=== PATIENT | female | born 1935 | race Caucasian/White ===

== ENCOUNTER 2021-12-22 15:12 | Emergency (ER) | payer MEDICARE, OTHER, SELFPAY ==
[2021-12-22 15:54] VITALS: BP 141/78; PULSE 113; RESP 20; TEMP 37.6; O2SAT 93; BMI 22.8
--- NOTE | 2021-12-22 18:05 | CRLHL7_ITS ---
For Patients: As a result of the Cures Act, medical imaging exams and procedure reports are released immediately into your electronic medical record. You may view this report before your referring provider. If you have questions, please contact your health care provider. Indication: Fall, pain. Technique: Two views of the right hip, single AP view of the pelvis. Comparison: Pelvis radiograph dated 09/25/2021. Findings/Impression: No acute displaced fracture or dislocation identified. Bones are osteopenic. Stable healed fracture deformities of the right superior and inferior pubic ramus. Senescent changes of the pubic symphysis, stable. Dictated by Kaylin Tang MD @ 12/22/2021 7:09:35 PM (Electronically Signed)
[2021-12-22 18:38] VITALS: BP 133/75; PULSE 94; RESP 18; O2SAT 92
[2021-12-22 19:00] LABS: Basophils Percent Auto 0.2 % (0.0-3.0); Eosinophils Percent Auto 0.1 % (0.0-7.0); Hematocrit 39.5 % (33.0-51.0); Hemoglobin* 13.1 gm/dL (12.0-16.0); Immature Granulocytes Abs Auto 0.03 K/uL (0.00-0.30); Lymphocytes Percent Auto 10.8 % (20-44); Mean Corpuscular HGB Conc 33 gm/dL (32-36); Mean Corpuscular Hemoglobin 30 pg (26-34); Mean Corpuscular Volume 92 fL (80-100); Monocytes Percent Auto 7.8 % (0.0-11.0); Neutrophils Percent Auto 80.9 % (42.0-72.0); Platelet Count* 276 K/uL (140-440); RDW Coefficient of Variation % 15.3 % (11.5-15.5); Red Blood Count 4.31 m/uL (4.00-5.20); White Blood Count* 13.01 K/uL (4.50-11.00)
[2021-12-22 19:18] LABS: Slide Review Reflex No
[2021-12-22 19:21] LABS: Albumin* 4.4 g/dL (3.3-5.0); Chloride* 102 mmol/L (96-114); Sodium* 137 mmol/L (135-149)
[2021-12-22 19:22] LABS: Potassium* 3.6 mmol/L (3.6-5.1)
[2021-12-22 19:24] LABS: Creatinine* 0.7 mg/dL (0.5-1.5); Est. Creatinine Clearance* 32.69; Estimated Glomerular Filt Rate 85 ml/min
[2021-12-22 19:25] LABS: Alanine Aminotransferase* 14 U/L (4-35); Alkaline Phosphatase* 55 U/L (40-150); Aspartate Amino Transferase* 24 U/L (12-35); Bilirubin Direct* 0.2 mg/dL (0.0-0.5); Blood Urea Nitrogen* 18 mg/dL (7-30); Calcium* 9.2 mg/dL (8.4-10.6); Carbon Dioxide* 25 mmol/L (20-32); Glucose* 125 mg/dL (60-115)
[2021-12-22 19:27] LABS: C Reactive Protein* 6.1 mg/dL (0.5-1.0)
[2021-12-22 19:34] LABS: Appearance Urine Clear (Clear); Bilirubin Urine Negative (Negative); Blood Urine 1+ (Negative); Color Urine Yellow (Yellow); Glucose Urine Negative (Negative); Ketones Urine 3+ (Negative); Leukocyte Esterase Urine 1+ (Negative); Nitrite Urine Negative (Negative); Protein Urine 1+ (Negative); Specific Gravity Urine 1.015 (1.000-1.030); Urobilinogen Urine 0.2 (0.2-1.0)
[2021-12-22 19:40] LABS: Troponin I* < 0.01 ng/mL (0.01-0.04)
--- NOTE | 2021-12-22 19:54 | ED_ITS ---
HPI - General Adult General Chief complaint: Fall/Minor Trauma Stated complaint: Fall, hip injury, COV+ Time Seen by Provider: 12/22/21 17:43 History of Present Illness HPI narrative: Patient is an 86-year-old woman here with her daughter for evaluation of some hip pain that is been ongoing for a number of months as well as some weakness over the past couple of days. They are also wanting a COVID test as a home test was weakly positive. She has had a little nasal congestion yesterday and today and reported onset of a headache while in triage. She has not had any fevers or cough, no GI complaints. She has not had any urinary symptoms. She had been going up and down stairs numerous times yesterday because they were planning to go to the [place] today and so they were packing up. This seemed to exacerbate the hip pain that she has had since falls in July and August. She was seen at that time and had a pelvic x-ray in September which was negative. She has old superior and inferior pubic rami fractures but did not have anything acute. She does have known compression fractures at multiple levels, the most recent was at L2. She had falls yesterday evening and this morning, her daughter says her knees just seemed to give out and she essentially sat down on the stairs. There is no reported injuries related to those falls. Her daughter says she just seemed a little weaker yesterday and today. Her daughter wonders if her hip is the culprit. No reported head or neck injury. She has tramadol that she takes occasionally for the hip pain although she tries to minimize that because it makes her constipated. Also she worries about getting dependent on it. She describes the hip pain as achy, it is in the lateral outside hip. She does not have any groin pain. Related Data Home Medications Medication Instructions Recorded Confirmed atorvastatin 10 mg tablet mg 12/22/21 budesonide 3 mg mg PO 12/22/21 capsule,delayed,extended release levothyroxine 75 mcg tablet mcg 12/22/21 Previous Rx's Medication Instructions Recorded alendronate 70 mg tablet 70 mg PO QWEEK #4 tabs 12/08/21 Allergies Allergy/AdvReac Type Severity Reaction Status Date / Time morphine Allergy Intermediate hives Verified 12/22/21 16:04 Review of Systems Status of ROS: Reports: 10 or more systems reviewed and unremarkable except as noted in History and below [facility] Social History Smoking Status: Former smoker Do you use any of these nicotine containing products: None Second hand tobacco smoke exposure: No How often do you have a drink containing alcohol: never How many standard drinks containing alcohol do you have on a typical day: 1 or 2 How often do you have six or more drinks on one occasion: Never AUDIT-C Alcohol total score: 0 Non-prescribed substance use: denies use service: No Exam Narrative: Exam Narrative: Vital signs as noted below In general, an alert, well-appearing elderly woman. Head: Normocephalic, atraumatic. Eyes: Pupils are equal reactive. Extraocular movements are full. Conjunctivae are normal. ENT: Mucous membranes are slightly dry. Neck: Supple without lymphadenopathy. Heart: Regular rate and rhythm. No murmur or rub. Lungs: Clear bilaterally. No increased work of breathing, crackles or wheezes. Abdomen: Soft and nontender. No organomegaly. Extremities: Well perfused. No edema. No calf tenderness. Pulses intact. She has full range of motion of the right hip, this does not seem to cause her any pain. She does have tenderness over the greater trochanter on the right, this seems to reproduce her hip pain. Neurologic: Patient is alert and oriented to person and place. Speech is fluent. Face is symmetric. Moves all extremities equally. Affect: Normal. Skin: Warm and dry. Well perfused. Const: Vital Signs, click to edit/add: Vital Signs - 24 hr 12/22/21 15:54 12/22/21 18:38 Temperature 99.7 F H Pulse Rate [Pulse Oximeter] 113 H 94 Respiratory Rate 20 18 Blood Pressure [Ri ght Upper Arm] 141/78 H 133/75 Pulse Oximetry 93 92 Oxygen Delivery Me thod Room Air Room Air Course Course Hospital Course: Following initial evaluation, I discussed how to approach this with the patient and her daughter. Her daughter did ask that we do some additional lab testing to evaluate why she might be feeling more weak. She also asked that we do x- rays of the right hip. Does x-rays by my review showed old changes of healed fracture of the superior and inferior ramus but I did not see any acute fractures. Final radiology report is similar. No acute fractures. Discussed with her daughter that with her having lateral hip pain, and reproducible tenderness over the trochanter, that I do suspect she probably is having trochanteric bursitis rather than anything related to a fracture or specific injury from her falls at this point. I recommended that they try Tylenol 3 times daily and see if she improves at all. She can follow up with Orthopedics if that is not helping. They can also continue to use the lidocaine patches on a more regular basis as they have had some success with that. With regard her labs, her COVID was negative here. Her white blood cell count is a little elevated at 13.0. Her hemoglobin is normal. Electrolytes are normal, troponin is negative. Little elevated at 6. TSH is normal. Urinalysis here showed 3+ ketones, moderate squames, 10-25 red cells and white cells. I discussed all this with them as well. I offered to do some IV fluids here. Patient is adamant she wants to leave, she is just tired and wants to go home. She says she can just drink water at home. I discussed with them that dehydration certainly can contribute to some weakness. Her lactate is 1 here, she is not febrile or hypotensive. I do not think she is septic. We talked about the UA, she does have moderate squames, very much denies any kind of urinary symptoms aside from frequency which she says is chronic. At this point, their preference is to hold off on antibiotics, will see how the culture looks. Her daughter says she basically drinks no fluids at all, so we talked about making sure that she is getting at least some water daily, and she promises me that she will drink at least 20 oz before she goes to bed tonight. For now, I am going to discharge her home. If they are having more trouble with weakness, certainly if she has any lightheadedness or fainting, if she develops fevers or vomiting, chills, etcetera, she should return for re-evaluation. Vital Signs Vital signs: Initial Vital Signs Temperature 99.7 F H 12/22/21 15:54 Temperature Source Temporal Artery Scan 12/22/21 15:54 Pulse Rate 113 H 12/22/21 15:54 Respiratory Rate 20 12/22/21 15:54 Blood Pressure 141/78 H 12/22/21 15:54 Blood Pressure Mean 99 08/09/22 15:54 Blood Pressure Position Supine 12/22/21 15:54 Pulse Oximetry 93 12/22/21 15:54 Oxygen Delivery Method 12/22/21 15:54 Vital Signs Temperature 99.7 F H 12/22/21 15:54 Pulse Rate 113 H 12/22/21 15:54 Respiratory Rate 20 12/22/21 15:54 Blood Pressure 141/78 H 12/22/21 15:54 Pulse Oximetry 93 12/22/21 15:54 Oxygen Delivery Method 12/22/21 15:54 Temperature 99.7 F H 12/22/21 15:54 Pulse Rate 94 12/22/21 18:38 Respiratory Rate 18 12/22/21 18:38 Blood Pressure 133/75 12/22/21 18:38 Pulse Oximetry 92 12/22/21 18:38 Oxygen Delivery Method 12/22/21 18:38 Medical Decision Making Lab Data Labs: Lab Results 12/22/21 12/22/21 12/22/21 Range/Units 18:38 18:50 18:50 WBC 13.01 H (4.50-11.00) K/uL RBC 4.31 (4.00-5.20) m/uL Hgb 13.1 (12.0-16.0) gm/dL Hct 39.5 (33.0-51.0) % MCV 92 (80-100) fL MCH 30 (26-34) pg MCHC 33 (32-36) gm/dL RDW Coeff of Marlen 15.3 (11.5-15.5) % Plt Count 276 (140-440) K/uL Neut % (Auto) 80.9 H (42.0-72.0) % Lymph % (Auto) 10.8 L (20-44) % [place] % (Auto) 7.8 (0.0-11.0) % Eos % (Auto) 0.1 (0.0-7.0) % Baso % (Auto) 0.2 (0.0-3.0) % Neut # (Auto) 10.50 H (1.7-7.0) K/uL Lymph # (Auto) 1.40 (0.90-2.90) K/uL [place] # (Auto) 1.00 H (0.00-0.90) K/UL Eos # (Auto) 0.00 (0.00-0.50) K/uL Baso # (Auto) 0.00 (0.00-0.30) K/uL Abs Immat Gran (auto) 0.03 (0.00-0.30) K/uL Sodium 137 (135-149) mmol/L Potassium 3.6 (3.6-5.1) mmol/L Chloride 102 (96-114) mmol/L Carbon Dioxide 25 (20-32) mmol/L BUN 18 (7-30) mg/dL Creatinine 0.7 (0.5-1.5) mg/dL Estimated Creat Clear 32.69 Estimated GFR 85 ml/min Glucose 125 H (60-115) mg/dL Lactate (0.5-1.9) mmol/L Calcium 9.2 (8.4-10.6) mg/dL Total Bilirubin 1.0 (0.1-1.5) mg/dL Direct Bilirubin 0.2 (0.0-0.5) mg/dL AST 24 (12-35) U/L ALT 14 (4-35) U/L Alkaline Phosphatase 55 (40-150) U/L Troponin I < 0.01 L (0.01-0.04) ng/mL C-Reactive Protein 6.1 H (0.5-1.0) mg/dL Total Protein 8.0 (6.0-8.3) g/dL Albumin 4.4 (3.3-5.0) g/dL TSH (0.270-4.200) uIU/mL Urine Color (Yellow) Urine Appearance (Clear) Urine pH (5.0-8.5) Ur Specific [place] (1.000-1.030) Urine Protein (Negative) Urine Glucose (UA) (Negative) Urine Ketones (Negative) Urine Blood (Negative) Urine Nitrite (Negative) Urine Bilirubin (Negative) Urine Urobilinogen (0.2-1.0) Ur Leukocyte Esterase (Negative) Urine RBC (0-2) Urine WBC (0-5) Ur Squamous Epith Cells (None-Few) Urine Bacteria (None) SARS-CoV-2 (PCR) Negative SARS-CoV-2 (Negative) 12/22/21 12/22/21 12/22/21 Range/Units 18:50 18:50 19:25 WBC (4.50-11.00) K/uL RBC (4.00-5.20) m/uL Hgb (12.0-16.0) gm/dL Hct (33.0-51.0) % MCV (80-100) fL MCH (26-34) pg MCHC (32-36) gm/dL RDW Coeff of [place] (11.5-15.5) % Plt Count (140-440) K/uL Neut % (Auto) (42.0-72.0) % Lymph % (Auto) (20-44) % [place] % (Auto) (0.0-11.0) % Eos % (Auto) (0.0-7.0) % Baso % (Auto) (0.0-3.0) % Neut # (Auto) (1.7-7.0) K/uL Lymph # (Auto) (0.90-2.90) K/uL [place] # (Auto) (0.00-0.90) K/UL Eos # (Auto) (0.00-0.50) K/uL Baso # (Auto) (0.00-0.30) K/uL Abs Immat Gran (auto) (0.00-0.30) K/uL Sodium (135-149) mmol/L Potassium (3.6-5.1) mmol/L Chloride (96-114) mmol/L Carbon Dioxide (20-32) mmol/L BUN (7-30) mg/dL Creatinine (0.5-1.5) mg/dL Estimated Creat Clear Estimated GFR ml/min Glucose (60-115) mg/dL Lactate 1.0 (0.5-1.9) mmol/L Calcium (8.4-10.6) mg/dL Total Bilirubin (0.1-1.5) mg/dL Direct Bilirubin (0.0-0.5) mg/dL AST (12-35) U/L ALT (4-35) U/L Alkaline Phosphatase (40-150) U/L Troponin I (0.01-0.04) ng/mL C-Reactive Protein (0.5-1.0) mg/dL Total Protein (6.0-8.3) g/dL Albumin (3.3-5.0) g/dL TSH 0.872 (0.270-4.200) uIU/mL Urine Color Yellow (Yellow) Urine Appearance Clear (Clear) Urine pH 5.0 (5.0-8.5) Ur Specific [place] 1.015 (1.000-1.030) Urine Protein 1+ A (Negative) Urine Glucose (UA) Negative (Negative) Urine Ketones 3+ A (Negative) Urine Blood 1+ A (Negative) Urine Nitrite Negative (Negative) Urine Bilirubin Negative (Negative) Urine Urobilinogen 0.2 (0.2-1.0) Ur Leukocyte Esterase 1+ A (Negative) Urine RBC 10-25 A (0-2) Urine WBC 10-25 A (0-5) Ur Squamous Epith Cells Moderate A (None-Few) Urine Bacteria Few A (None) SARS-CoV-2 (PCR) (Negative) Discharge Plan Discharge Clinical Impression: Trochanteric bursitis of right hip, Dehydration Patient Disposition: Home, Self-Care Condition: Stable Instructions: Dehydration (ED), Hip Bursitis (ED) Additional Instructions: Make sure you are getting plenty of fluids, drink at least 20 oz of water a day. For your hip, 1000 mg of Tylenol 3 times daily. Lidocaine patches if needed. If you are not improving, follow up with Orthopedics. I will send the urine for culture, if this is positive for a bacteria suspicious for urinary tract inf ection, we will call you so that we can start an antibiotic. If at any time if you have worsening symptoms such as fever, vomiting, chills, or worsening weakness, return for re-evaluation. Prescriptions: No Action atorvastatin 10 mg tablet Label Comments: TAKE 1 TABLET BY MOUTH AT BEDTIME . APPOINTMENT REQUIRED FOR FUTURE REFILLS levothyroxine 75 mcg tablet Label Comments: TAKE 1 TABLET BY MOUTH ONCE DAILY budesonide 3 mg capsule,delayed,extend.release PO Label Comments: TAKE 3 CAPSULES BY MOUTH ONCE DAILY FOR 3 WEEKS THEN 2 CAPSULES ONCE DAILY FOR 3 WEEKS THEN 1 CAPSULE ONCE DAILY FOR 3 WEEKS THEN STOP alendronate 70 mg tablet 70 mg PO QWEEK Qty: 4 11RF Follow Up/Referrals: Oleksandr Cordova MD [Primary Care Provider] - Stand Alone Forms: [employer] Info Instructions
[2021-12-22 19:55] LABS: Bacteria Urine Few; Squamous Epithelial Cell Urine Moderate (None-Few)
[2021-12-22 20:08] LABS: TSH With Reflex to FT4* 0.872 uIU/mL (0.270-4.200)
[2021-12-22 20:15] LABS: SARS PCR* Negative SARS-CoV-2 (Negative)
--- NOTE | 2021-12-22 20:22 | ED.NURSE ---
Pt and daughter both wondering why fluids are needed. Pt wants to go home. Dr Craig updated and will go speak with pt.
== END 2021-12-22 20:49 | disposition home or self-care (01) ==
PROVIDERS: Emergency Provider Emergency Medicine; PCP Family Medicine
DX: E86.0 Dehydration (principal); M70.61 Trochanteric bursitis, right hip
CPT/HCPCS: 36415; 73502; 80048; 80076; 81001; 83605; 84443; 84484; 85025; 86140; 87086; 87635; 93005; 99284; 99285; M0243

== ENCOUNTER 2022-02-22 14:15 | Outpatient (CLI) | payer MEDICARE, OTHER, SELFPAY ==
--- NOTE | 2022-02-22 14:40 | CRLHL7_ITS ---
For Patients: As a result of the Century Cures Act, medical imaging exams and procedure reports are released immediately into your electronic medical record. You may view this report before your referring provider. If you have questions, please contact your health care provider. BILATERAL SCREENING MAMMOGRAM WITH COMPUTER-AIDED DETECTION AND TOMOSYNTHESIS TECHNIQUE: CC and MLO views were obtained. These mammographic images have been obtained using full-field digital technique. These mammographic images were interpreted with the benefit of computer-aided detection. Breast Tomosynthesis was used in this interpretation. COMPARISON FILM: 07/17/20, 07/31/18, 08/10/16. FINDINGS: The breasts are heterogeneously dense, which may obscure small masses IMPRESSION: There is no radiographic evidence for malignancy. ASSESSMENT: BI-RADS Category 2: Benign RECOMMENDATION: Routine screening mammogram in 1 year. A lay language report of this examination will be provided to the patient. Enio Porter M.D. Diagnostic Radiologist [email or web address] [place]CIUS/Dictated by: Enio Porter MD @ 02/23/2022 8:28:00 AM (Electronically Signed)
== END 2022-02-22 14:16 | disposition home or self-care (01) ==
LOC: MAMMO 14:18
PROVIDERS: PCP Family Medicine; Visit Provider Family Medicine
DX: Z12.31 Encounter for screening mammogram for malignant neoplasm of breast (principal); R92.2 Inconclusive mammogram
CPT/HCPCS: 77063; 77067

== ENCOUNTER 2022-06-01 15:09 | Outpatient (CLI) | payer MEDICARE, OTHER, SELFPAY ==
[2022-06-01 17:50] LABS: Cholesterol* 172 mg/dL (90-199); HDL Cholesterol* 61 mg/dL (>=50); LDL Cholesterol Calculated 90 mg/dL (<100); Triglycerides* 105 mg/dL (40-149)
[2022-06-01 18:40] LABS: Vitamin B12* 185 pg/mL (243-894)
[2022-06-03 21:43] LABS: Immunoglobulin A 295 mg/dL (68-408)
[2022-06-04 17:20] LABS: Tissue Transglutaminase IgA <2 U/mL (0-3)
== END 2022-06-01 15:10 | disposition home or self-care (01) ==
PROVIDERS: PCP Family Medicine; Visit Provider Family Medicine
DX: Z00.00 Encounter for general adult medical examination without abnormal findings (principal); E78.5 Hyperlipidemia, unspecified; E03.9 Hypothyroidism, unspecified; R19.7 Diarrhea, unspecified; Z13.21 Encounter for screening for nutritional disorder
CPT/HCPCS: 80061; 82607; 82784; 86364

== ENCOUNTER 2022-07-07 17:55 | Outpatient (CLI) | payer MEDICARE, OTHER, SELFPAY | END 2022-07-07 17:56 | disposition home or self-care (01) | LOC: AMB 07-18 13:22 | PROVIDERS: PCP Family Medicine; Visit Provider Family Medicine | DX: S09.90XA Unspecified injury of head, initial encounter (principal); W18.39XA Other fall on same level, initial encounter; Y92.008 Other place in unspecified non-institutional (private) residence as the place of occurrence of the external cause | CPT/HCPCS: A0425; A0427 ==

== ENCOUNTER 2022-07-07 18:49 | Inpatient (IN) | payer MEDICARE, OTHER, SELFPAY ==
[2022-07-07] VITALS (37 sets, daily range): BP systolic 125–198; BP diastolic 75–108; PULSE 79–101; RESP 20; TEMP 37; O2SAT 88–97
--- NOTE | 2022-07-07 18:58 | CRLHL7_ITS ---
For Patients: As a result of the Century Cures Act, medical imaging exams and procedure reports are released immediately into your electronic medical record. You may view this report before your referring provider. If you have questions, please contact your health care provider. INDICATION: Fall with neck pain. TECHNIQUE: CT cervical spine without contrast. COMPARISON: None. FINDINGS: Vertebrae: Alignment is normal. There are no fractures or suspicious bony lesions. Discs and facet joints: There are diffuse degenerative changes in the disc spaces and facet joints. Extraspinal findings: Paraspinous soft tissues are unremarkable. IMPRESSION: 1. No sign of acute injury. 2. Multilevel degenerative spondylosis. Please note that all CT scans at this facility use dose modulation, iterative reconstruction, and/or weight-based dosing when appropriate to reduce radiation dose to as low as reasonably achievable. Dictated by Goyo Dasilva MD @ 07/07/2022 7:59:54 PM (Electronically Signed)
--- NOTE | 2022-07-07 18:58 | CRLHL7_ITS ---
For Patients: As a result of the Century Cures Act, medical imaging exams and procedure reports are released immediately into your electronic medical record. You may view this report before your referring provider. If you have questions, please contact your health care provider. INDICATION: Fall with upper sacral pain. TECHNIQUE: CT lumbar spine without contrast. COMPARISON: None. FINDINGS: Vertebrae: Alignment is normal. Severe chronic appearing compression fractures of the T11, L1 and L2 vertebral bodies. Probable subtle nondisplaced acute fracture of the S2 segment of the sacrum visualized on the sagittal series 7, image 24. Discs and facet joints: Multilevel degenerative changes. Extraspinal findings: Prevertebral soft tissues and visualized retroperitoneum are unremarkable. IMPRESSION: 1. No signs of acute injury in the lumbar spine. 2. Probable acute nondisplaced fracture in the S2 segment of the sacrum. Please note that all CT scans at this facility use dose modulation, iterative reconstruction, and/or weight-based dosing when appropriate to reduce radiation dose to as low as reasonably achievable. Dictated by Goyo Dasilva MD @ 07/07/2022 7:48:29 PM (Electronically Signed)
--- NOTE | 2022-07-07 18:58 | CRLHL7_ITS ---
For Patients: As a result of the Cures Act, medical imaging exams and procedure reports are released immediately into your electronic medical record. You may view this report before your referring provider. If you have questions, please contact your health care provider. INDICATION: Fall with head injury. TECHNIQUE: CT head without contrast. COMPARISON: 05/11/2021. FINDINGS: CSF spaces: Within normal limits for age. Brain parenchyma and extra-axial spaces: Small acute right temporal subdural hematoma measures 4 mm in thickness visualized on series 2, image 24. A smaller thinner subdural hematoma is more anterior in the right frontal region. No sign of intracranial hemorrhage elsewhere. No mass effect or midline shift. Skull base and calvarium: The visualized paranasal sinuses and mastoid air cells demonstrate no acute or significant findings. The visualized orbits are grossly unremarkable. No skull fractures. Right frontal scalp laceration. IMPRESSION: Small right temporal acute subdural hematoma measuring 4 mm in thickness with a smaller more anterior subdural hematoma in this same region. No mass effect or midline shift. Right frontal scalp laceration present. Please note that all CT scans at this facility use dose modulation, iterative reconstruction, and/or weight-based dosing when appropriate to reduce radiation dose to as low as reasonably achievable. Dictated by Goyo Dasilva MD @ 07/07/2022 7:56:34 PM (Electronically Signed)
--- NOTE | 2022-07-07 19:12 | ED.FALL ---
HPI - Fall General Chief Complaint: Fall/Minor Trauma Stated Complaint: Fall LOC Time Seen by Provider: 07/07/22 18:57 History of Present Illness HPI Narrative: 87-year-old woman presenting to the emergency department via EMS, trauma team activation. She has sustained a fall in her home apparently down in the basement while was ambulating over carpet with her walker caught an edge tripped and fell. Daughter heard this fall and got to her rolled her over and apparently was passed out. Estimated time of syncope is 30-60 seconds. Has been repeating herself. Amnestic to fall. Noted on transfer to have some right hip pain which she says is not new. Does note a history of compression fractures of the spine. No noted chest pain or shortness of breath. She is also noted to have sustained a laceration of the right brow. Has been packed with absorbent gauze by EMS. No abdominal pain. Notes a history of extensive lymph node resection for breast cancer. Also notes chronic right shoulder pain. Does note some neck pain but this is not necessarily new. Takes 81 mg of aspirin daily. Related Data Home Medications Medication Instructions Recorded Confirmed budesonide 3 mg mg PO 12/22/21 capsule,delayed,extended release acetaminophen 500 mg tablet 500 mg PO Q6H PRN 02/03/22 (Tylenol Extra Strength) aspirin 81 mg chewable tablet 81 mg PO QDAY 02/03/22 cholecalciferol (vitamin D3) 125 125 mcg PO QDAY 02/03/22 mcg (5,000 unit) capsule lidocaine 5 % topical 1 patch topical QDAY 02/03/22 patch-kinesiology tape, kit with alcohol pads Previous Rx's Medication Instructions Recorded alendronate 70 mg tablet 70 mg PO QWEEK #4 tabs 12/08/21 tramadol 50 mg tablet 50 - 100 mg PO Q6H PRN pain #40 02/03/22 tabs atorvastatin 10 mg tablet See Rx Instructions .Route 03/30/22 .COMPLEX #90 tabs levothyroxine 75 mcg tablet 75 mcg PO QDAY #90 tabs 04/20/22 Allergies Allergy/AdvReac Type Severity Reaction Status Date / Time morphine Allergy Intermediate hives Verified 05/31/22 12:06 Review of Systems Status of ROS: Reports: 6 or more systems reviewed and unremarkable except as noted in History and below [facility] Surgical History Status post hysterectomy Status post laparoscopic cholecystectomy Status post left breast lumpectomy Social History Smoking Status: Never smoker Do you use any of these nicotine containing products: None Second hand tobacco smoke exposure: No How often do you have a drink containing alcohol: never How many standard drinks containing alcohol do you have on a typical day: 1 or 2 How often do you have six or more drinks on one occasion: Never AUDIT-C Alcohol total score: 0 Non-prescribed substance use: denies use Little interest or pleasure in doing things: several days Feeling down, depressed, or hopeless: several days service: No Exam Narrative: Exam Narrative: Pleasant. Calm. Have a gauze on right brow/forehead. In a C-collar. There is some trace blood in the area this gauze. Some dried blood on her cheek. Extraocular movements are intact and full. Eyes are bright consistent with lens reimplantation. Pupils are about 2.5 mm equal and reactive. Spots of blood on her upper right shirt. Breathing easily; airway is open. C-collar on. Ear canals appear to be without fluid. She does have hearing aids on the right 1 has dislodged is little hard of hearing. No midline tenderness of the neck. Examination of the back is without deformity but she is sore to palpation in the L5-S1 area. Lungs appear to be clear. Abdomen is soft and nontender. No pain to palpation over the clavicles or extremities. She is well-perfused centrally and peripherally. Abdomen is soft and nontender. She is able to raise both legs straight from the bed with good strength. There is mild erythema about nickel sized on each patella. No lower extremity edema. Examining of the forehead removal of gauze. There is a 2.5 in irregularly-shaped laceration full dermal right brow. Bleeds easily when manipulated. Const: Vital Signs, click to edit/add: Vital Signs - 24 hr 07/07/22 19:01 07/07/22 19:18 07/07/22 19:23 Temperature 98.6 F Pulse Rate 96 99 Pulse Rate [Left P ulse Oximeter] 96 Respiratory Rate 20 Blood Pressure 198/108 H Blood Pressure [Le ft Upper Arm] 141/98 H Pulse Oximetry 96 94 92 Oxygen Delivery Me thod Room Air Oxygen Flow Rate 07/07/22 19:31 07/07/22 19:32 07/07/22 19:41 Temperature Pulse Rate 95 91 94 Pulse Rate [Left P ulse Oximeter] Respiratory Rate Blood Pressure 167/99 H 162/94 H Blood Pressure [Le ft Upper Arm] Pulse Oximetry 97 97 96 Oxygen Delivery Me thod Oxygen Flow Rate 07/07/22 19:45 07/07/22 19:51 07/07/22 20:01 Temperature Pulse Rate 93 92 83 Pulse Rate [Left P ulse Oximeter] Respiratory Rate Blood Pressure 164/99 H 147/99 H Blood Pressure [Le ft Upper Arm] Pulse Oximetry 88 93 93 Oxygen Delivery Me thod Oxygen Flow Rate 07/07/22 20:01 07/07/22 20:11 07/07/22 20:15 Temperature Pulse Rate 82 82 86 Pulse Rate [Left P ulse Oximeter] Respiratory Rate Blood Pressure 150/105 H Blood Pressure [Le ft Upper Arm] Pulse Oximetry 94 92 94 Oxygen Delivery Me thod Oxygen Flow Rate 07/07/22 20:21 07/07/22 20:30 07/07/22 20:31 Temperature Pulse Rate 82 79 79 Pulse Rate [Left P ulse Oximeter] Respiratory Rate Blood Pressure 162/104 H 131/93 H Blood Pressure [Le ft Upper Arm] Pulse Oximetry 96 95 95 Oxygen Delivery Me thod Oxygen Flow Rate 07/07/22 20:43 07/07/22 20:45 07/07/22 20:52 Temperature Pulse Rate 86 84 94 Pulse Rate [Left P ulse Oximeter] Respiratory Rate Blood Pressure 145/93 H 125/76 Blood Pressure [Le ft Upper Arm] Pulse Oximetry 96 96 95 Oxygen Delivery Me thod Oxygen Flow Rate 07/07/22 21:00 07/07/22 21:02 07/07/22 21:22 Temperature Pulse Rate 89 90 87 Pulse Rate [Left P ulse Oximeter] Respiratory Rate Blood Pressure 151/90 H Blood Pressure [Le ft Upper Arm] Pulse Oximetry 95 96 89 Oxygen Delivery Me thod Oxygen Flow Rate 07/07/22 21:30 07/07/22 21:34 07/07/22 21:44 Temperature Pulse Rate 90 94 93 Pulse Rate [Left P ulse Oximeter] Respiratory Rate Blood Pressure Blood Pressure [Le ft Upper Arm] Pulse Oximetry 95 92 93 Oxygen Delivery Me thod Oxygen Flow Rate 07/07/22 21:45 07/07/22 21:54 07/07/22 22:00 Temperature Pulse Rate 93 92 93 Pulse Rate [Left P ulse Oximeter] Respiratory Rate Blood Pressure Blood Pressure [Le ft Upper Arm] Pulse Oximetry 92 91 91 Oxygen Delivery Me thod Oxygen Flow Rate 07/07/22 22:15 07/07/22 22:30 07/07/22 22:45 Temperature Pulse Rate 92 100 95 Pulse Rate [Left P ulse Oximeter] Respiratory Rate Blood Pressure 146/75 H Blood Pressure [Le ft Upper Arm] Pulse Oximetry 90 88 93 Oxygen Delivery Me thod Oxygen Flow Rate 07/07/22 22:46 07/07/22 22:47 07/07/22 23:00 Temperature Pulse Rate 95 99 Pulse Rate [Left P ulse Oximeter] Respiratory Rate Blood Pressure Blood Pressure [Le ft Upper Arm] Pulse Oximetry 93 93 93 Oxygen Delivery Me thod Nasal Cannula Oxygen Flow Rate 2 07/07/22 23:03 07/07/22 23:15 07/07/22 23:30 Temperature Pulse Rate 98 101 H 96 Pulse Rate [Left P ulse Oximeter] Respiratory Rate Blood Pressure 146/84 H Blood Pressure [Le ft Upper Arm] Pulse Oximetry 94 94 95 Oxygen Delivery Me thod Oxygen Flow Rate 07/07/22 23:36 07/07/22 23:45 Temperature Pulse Rate 99 98 Pulse Rate [Left P ulse Oximeter] Respiratory Rate Blood Pressure 138/90 H Blood Pressure [Le ft Upper Arm] Pulse Oximetry 95 96 Oxygen Delivery Me thod Oxygen Flow Rate Documenting provider has reviewed patient's vital signs: yes Course Vital Signs Vital signs: Initial Vital Signs Temperature 98.6 F 07/07/22 19:01 Temperature Source Temporal Artery Scan 07/07/22 19:01 Pulse Rate 96 07/07/22 19:01 Respiratory Rate 20 07/07/22 19:01 Blood Pressure 141/98 H 07/07/22 19:01 Blood Pressure Mean 112 07/07/22 19:01 Blood Pressure Position Supine 07/07/22 19:01 Pulse Oximetry 96 07/07/22 19:01 Oxygen Delivery Method 07/07/22 19:01 Vital Signs Temperature 98.6 F 07/07/22 19:01 Pulse Rate 96 07/07/22 19:01 Respiratory Rate 20 07/07/22 19:01 Blood Pressure 141/98 H 07/07/22 19:01 Pulse Oximetry 96 07/07/22 19:01 Oxygen Delivery Method 07/07/22 19:01 Temperature 98.6 F 07/07/22 19:01 Pulse Rate 98 07/07/22 23:45 Respiratory Rate 20 07/07/22 19:01 Blood Pressure 138/90 H 07/07/22 23:36 Pulse Oximetry 96 07/07/22 23:45 Oxygen Delivery Method 07/07/22 22:47 Oxygen Flow Rate 2 07/07/22 22:47 MDM - Fall MDM Narrative Medical decision making narrative: Was sent for imaging upon arrival. Initiated on 500 mL normal saline. I did review all images on head CT cervical spine CT and lumbar spine CT CT head without contrast. COMPARISON: 05/11/2021. FINDINGS: CSF spaces: Within normal limits for age.? Brain parenchyma and extra-axial spaces: Small acute right temporal subdural hematoma measures 4 mm in thickness visualized on series 2, image 24. A smaller thinner subdural hematoma is more anterior in the right frontal region. No sign of intracranial hemorrhage elsewhere. No mass effect or midline shift. Skull base and calvarium: The visualized paranasal sinuses and mastoid air cells demonstrate no acute or significant findings.? The visualized orbits are grossly unremarkable.? No skull fractures.? Right frontal scalp laceration. IMPRESSION: Small right temporal acute subdural hematoma measuring 4 mm in thickness with a smaller more anterior subdural hematoma in this same region. No mass effect or midline shift. Right frontal scalp laceration present. CT cervical spine without contrast. COMPARISON: None. FINDINGS: Vertebrae: Alignment is normal.? There are no fractures or suspicious bony lesions.? Discs and facet joints: There are diffuse degenerative changes in the disc spaces and facet joints. Extraspinal findings: Paraspinous soft tissues are unremarkable.? IMPRESSION: 1. No sign of acute injury. 2. Multilevel degenerative spondylosis. CT lumbar spine without contrast. COMPARISON: None. FINDINGS: Vertebrae: Alignment is normal.? Severe chronic appearing compression fractures of the T11, L1 and L2 vertebral bodies. Probable subtle nondisplaced acute fracture of the S2 segment of the sacrum visualized on the sagittal series 7, image 24. Discs and facet joints: Multilevel degenerative changes. Extraspinal findings: Prevertebral soft tissues and visualized retroperitoneum are unremarkable.? IMPRESSION: 1. No signs of acute injury in the lumbar spine. 2. Probable acute nondisplaced fracture in the S2 segment of the sacrum. Looking for advice and potential transport for this patient in challenging weather conditions this evening. The family's preference initially was for [facility] however they have no beds. After speaking initially with flexographic press helper and then Neurosurgery, they were unable to advise. Called to [facility]. ED to ED transport would be available but weather is [place] for transport [place]. With that in mind I would like to speak with neurosurgery for further advice and care prior to transport. Further conversation with family they would be okay with [facility] however now able to talk to [facility] and they cannot accept this patient due to high volume at this time. SBP briefly over 160 has resolved to 140s. Appears to be doing well with pain management. Earlier did receive per request 1 g of acetaminophen. Scalp laceration was anesthetized with lidocaine with epinephrine. Cleansed with Shur-Clens solution. Continuing to bleed well. Placed total of 12 interrupted Ethilon sutures of 5 and 6-0. Very good wound approximation achieved. Mild oozing of blood on lower aspect. Antibiotic ointment. Bruising has increased, swelling as well, with family request have placed ice pack. 11:30 p.m. having difficulty getting face sheet to [facility] to discuss further with Neurosurgery anticipating ED to ED transport. Passing 5 hours now in time since injury. And 4-1/[address] With concern of transport I am wondering if it might shortly be indicated to go ahead and re-scan and can make other arrangements including potential admission at this facility if there has been no expansion of this bleed, might be able to keep here and not risk transport as roads and weather are still quite concerning. Would like to speak with neurosurgery for their blessing. [id number] handing off at change of shift Lab Data Attestation: I reviewed the patient's lab results. Labs: Lab Results 07/07/22 Range/Units 19:31 SARS-CoV-2 (PCR) Negative SARS-CoV-2 (Negative) Influenza Type A (PCR) Negative PCR FLU A (Negative) Influenza Type B (PCR) Negative PCR FLU B (Negative) RSV (PCR) Negative PCR RSV (Negative) Critical Care Time Critical Care Time Critical Care Time: Yes Attestation: The patient required my highest level preparedness to intervene emergently and I personally spent this critical care time directly and personally managing the patient. This critical care time included: Obtaining a history; Examining the patient; Pulse oximetry; Ordering and reviewing of studies; Arranging urgent treatment with development of a management plan; Evaluation of patients response to treatment; Frequent reassessment discussions with other providers. This critical care time was performed to assess and manage the high probability of imminent life-threatening deterioration that could result in multiorgan failure. It was exclusive of separate billable procedures and treating other patients and teaching time. Total Critical Care Time in Minutes: 75 Discharge Plan Discharge Clinical Impression: Acute subdural hematoma, Closed head injury, Sacral fracture, Laceration of forehead Condition: Improved Prescriptions: No Action budesonide 3 mg capsule,delayed,extend.release PO Label Comments: TAKE 3 CAPSULES BY MOUTH ONCE DAILY FOR 3 WEEKS THEN 2 CAPSULES ONCE DAILY FOR 3 WEEKS THEN 1 CAPSULE ONCE DAILY FOR 3 WEEKS THEN STOP alendronate 70 mg tablet 70 mg PO QWEEK Qty: 4 11RF aspirin 81 mg tablet,chewable 81 mg PO QDAY lidocaine-kinesiology tape 5 % kit 1 patch topical QDAY Rx Instructions: leave on most painful area for up to 12 hrs acetaminophen [Tylenol Extra Strength] 500 mg tablet 500 mg PO Q6H PRN cholecalciferol (vitamin D3) 125 mcg (5,000 unit) capsule 125 mcg PO QDAY tramadol 50 mg tablet 50 - 100 mg PO Q6H PRN (Reason: pain) Qty: 40 1RF atorvastatin 10 mg tablet See Rx Instructions .ROUTE .COMPLEX Qty: 90 3RF Dose Instruction: TAKE 1 TABLET BY MOUTH AT BEDTIME . APPOINTMENT REQUIRED FOR FUTURE REFILLS Rx Instructions: TAKE 1 TABLET BY MOUTH AT BEDTIME . APPOINTMENT REQUIRED FOR FUTURE REFILLS levothyroxine 75 mcg tablet 75 mcg PO QDAY Qty: 90 2RF Follow Up/Referrals: Oleksandr Cordova MD [Primary Care Provider] -
[2022-07-07] MEDS: 0.9 % SODIUM CHLORIDE 500 ML 500 ML IV (19:29)
[2022-07-07 20:19] LABS: PCR FLU A Negative PCR FLU A (Negative); PCR FLU B Negative PCR FLU B (Negative); PCR RSV Negative PCR RSV (Negative)
[2022-07-07] MEDS: ACETAMINOPHEN 500 MG TABLET 1000 MG PO (21:15)
[2022-07-07 21:16] LABS: SARS PCR* Negative SARS-CoV-2 (Negative)
--- NOTE | 2022-07-07 22:45 | ED.NURSE ---
Pulse oximeter noted to be at 89%. Nasal cannula at 2L placed on patient, sats now 93%.
--- NOTE | 2022-07-07 23:59 | CRLHL7_ITS ---
For Patients: As a result of the Century Cures Act, medical imaging exams and procedure reports are released immediately into your electronic medical record. You may view this report before your referring provider. If you have questions, please contact your health care provider. INDICATION: Intracranial hemorrhage. TECHNIQUE: Head CT without contrast. COMPARISON: CT head 07/07/2022. FINDINGS: CSF spaces: Within normal limits for age. Brain parenchyma: Stable right frontotemporal convexity subdural hematoma measuring 4 mm in maximal thickness. No new hemorrhage. Mild diffuse volume loss. Patchy white matter low attenuation changes, nonspecific but likely reflecting chronic small vessel ischemic disease. No sign of mass effect or midline shift. Atherosclerotic calcifications of the cavernous carotids and carotid siphons. Skull base and calvarium: The visualized paranasal sinuses and mastoid air cells demonstrate no acute or significant findings. Bilateral lens extraction. No skull fractures. Right frontal scalp laceration and periorbital hematoma, unchanged. IMPRESSION: Stable small right frontotemporal convexity subdural hematoma. No new intracranial hemorrhage. Please note that all CT scans at this facility use dose modulation, iterative reconstruction, and/or weight-based dosing when appropriate to reduce radiation dose to as low as reasonably achievable. Dictated by Wesly Khan MD @ 07/08/2022 12:43:06 AM (Electronically Signed)
[2022-07-08] VITALS (17 sets, daily range): BP systolic 116–150; BP diastolic 58–96; PULSE 62–98; RESP 16–18; TEMP 36.6–37.3; O2SAT 77–96; BMI 22.5
[2022-07-08] MEDS: levETIRAcetam 500 MG TABLET PO ×2 (00:57→20:52)
--- NOTE | 2022-07-08 01:01 | W.PC.EDHO ---
Primary Language: Preferred Language: Orientation Status: [] Alert & Oriented [x] Slight Confusion [] Known Dx Dementia Transfers By: [x] Assist of 1 [] Assist of 2 [] Lift Active Medications Generic Name Dose Route Start Last Admin Trade Name Paty PRN Reason Stop Dose Admin Levetiracetam 500 mg 07/08/22 00:45 07/08/22 00:57 Levetiracetam 500 Mg Tablet PO 500 mg BID DEBBIE Administration Discontinued Medications Generic Name Dose Route Start Last Admin Trade Name Paty PRN Reason Stop Dose Admin Acetaminophen 1,000 mg 07/07/22 20:57 07/07/22 21:15 Acetaminophen 500 Mg Tablet PO 07/07/22 20:58 1,000 mg ONCE ONE Administration Sodium Chloride 500 mls @ 500 mls/hr 07/07/22 18:58 07/07/22 20:51 0.9 % Sodium Chloride 500 Ml IV 07/07/22 19:57 Infused .Q1H ONE Infusion Lidocaine/Epinephrine 5 ml 07/07/22 20:39 07/07/22 22:13 Lidocaine 1%-Epi 1:100,000 20 Ml INFILTRATI 07/07/22 20:40 5 ml ONCE ONE Administration Description of Symptoms ED Triage Present Problem Pt reportedly fell at home around 1720 hours. Pt Description was walking with a walker and stumbled and tripped . Fell down onto carpet and struck R side of head, lost consciousness. Fall was witnessed by daughter. Pt reportedly had LOC for approx 30 secs -1 min. Does have a large lac on R forehead. C/o 7 /10 pain in head. Is A&Ox4 now. ED Triage Date of Onset of 07/07/22 Symptoms Elva Coma Scale [place] coma scale total score 15 [place] coma scale total score 15 [place] coma scale total score 15 Elva coma scale total score 15 Elva coma scale total score 15 [place] coma scale total score 15 Elva coma scale total score 15 Elva coma scale total score 15 Pain Pain Description [Lower Back] Sharp Pain Intensity [Lower Back] 4 Pain Intensity 6 Pain Intensity 4 Pain Scale Used Numeric (1 - 10) Oxygen Administration Pulse Oximetry 96 Pulse Oximetry 95 Pulse Oximetry 95 Pulse Oximetry 94 Pulse Oximetry 94 Pulse Oximetry 93 Pulse Oximetry 93 Pulse Oximetry 93 Pulse Oximetry 93 Pulse Oximetry 88 Pulse Oximetry 90 Pulse Oximetry 91 Pulse Oximetry 91 Pulse Oximetry 92 Pulse Oximetry 93 Pulse Oximetry 92 Pulse Oximetry 95 Pulse Oximetry 89 Pulse Oximetry 96 Pulse Oximetry 95 Pulse Oximetry 95 Pulse Oximetry 96 Pulse Oximetry 96 Pulse Oximetry 95 Pulse Oximetry 95 Pulse Oximetry 96 Pulse Oximetry 94 Pulse Oximetry 92 Pulse Oximetry 94 Pulse Oximetry 93 Pulse Oximetry 93 Pulse Oximetry 88 Pulse Oximetry 96 Pulse Oximetry 97 Pulse Oximetry 97 Pulse Oximetry 92 Pulse Oximetry 94 Pulse Oximetry 96 Oxygen Delivery Method Nasal Cannula Oxygen Delivery Method Room Air Oxygen Flow Rate 2
[2022-07-08 02:02] LABS: Basophils Absolute Auto 0.03 K/uL (0.00-0.30); Basophils Percent Auto 0.5 % (0.0-3.0); Hematocrit 40.3 % (33.0-51.0); Hemoglobin* 13.3 gm/dL (12.0-16.0); Immature Granulocytes Abs Auto 0.01 K/uL (0.00-0.30); Immature Granulocytes Pct Auto 0.2 %; Lymphocytes Percent Auto 17.4 % (20-44); Mean Corpuscular HGB Conc 33 gm/dL (32-36); Mean Corpuscular Hemoglobin 31 pg (26-34); Mean Corpuscular Volume 94 fL (80-100); Monocytes Percent Auto 12.2 % (0.0-11.0); Neutrophils Absolute Auto 4.02 K/uL (1.7-7.0); Neutrophils Percent Auto 69.7 % (42.0-72.0); Platelet Count* 233 K/uL (140-440); RDW Coefficient of Variation % 14.1 % (11.5-15.5); White Blood Count* 5.76 K/uL (4.50-11.00)
[2022-07-08 02:03] LABS: Slide Review Reflex No
[2022-07-08 02:12] LABS: Albumin* 4.1 g/dL (3.3-5.0); Chloride* 106 mmol/L (96-114); Potassium* 3.6 mmol/L (3.6-5.1); Sodium* 139 mmol/L (135-149)
[2022-07-08 02:14] LABS: Creatinine* 0.7 mg/dL (0.5-1.5); Estimated Glomerular Filt Rate 85 ml/min
[2022-07-08 02:15] LABS: Alanine Aminotransferase* 19 U/L (4-35); Alkaline Phosphatase* 47 U/L (40-150); Aspartate Amino Transferase* 28 U/L (12-35); Bilirubin Total* 0.6 mg/dL (0.1-1.5); Blood Urea Nitrogen* 16 mg/dL (7-30); Carbon Dioxide* 24 mmol/L (20-32); Glucose* 108 mg/dL (60-115); Total Protein* 7.5 g/dL (6.0-8.3)
[2022-07-08 02:16] LABS: Calcium* 8.9 mg/dL (8.4-10.6); Magnesium* 1.8 mg/dL (1.5-2.6)
[2022-07-08 02:27] LABS: Troponin I* 0.01 ng/mL (0.01-0.04)
[2022-07-08] MEDS: ACETAMINOPHEN 325 MG TABLET 650 MG PO ×3 (04:30→21:57)
--- NOTE | 2022-07-08 04:54 | CRLHL7_ITS ---
For Patients: As a result of the Century Cures Act, medical imaging exams and procedure reports are released immediately into your electronic medical record. You may view this report before your referring provider. If you have questions, please contact your health care provider. INDICATION: Abdominal pain COMPARISON: Portions of a lumbar spine study from July 07, 2022 TECHNIQUE: CT examination of the abdomen and pelvis was performed following the uneventful intravenous administration of 71 cc of Isovue 370. Thin section axial images were obtained from the lung bases through the pubic symphysis. Oral contrast was not administered. Please note that all CT scans at this facility use dose modulation, iterative reconstruction, and/or weight-based dosing when appropriate to reduce radiation dose to as low as reasonably achievable. FINDINGS: LUNG BASES: Enlarged heart. Very large hiatal hernia, essentially an intrathoracic stomach. Bibasilar airspace process right greater than left probably atelectasis though aspiration or pneumonia is possible at the posterior right base. LIVER/BILIARY SYSTEM:The liver is normal in size and configuration. There is no focal mass and there is no intra- or extra hepatic biliary ductal dilatation.Surgically absent gallbladder. Focal fat near the falciform ligament incidentally noted. ADRENALS: Normal KIDNEYS, URETERS and BLADDER:No acute appearing finding. Renal cysts. No obstructive uropathy. The bladder appears normal. SPLEEN:Normal appearance. PANCREAS: Appears normal. RETROPERITONEUM and MESENTERY: There is no mass, adenopathy or aortic aneurysm. Atherosclerotic vascular calcifications GASTROINTESTINAL SYSTEM: There is no evidence of diverticulitis, colitis, mechanical obstruction, or appendicitis. The small bowel as visualized appears normal.Fecal retention. Diverticulosis. Fairly strong suggestion of a rectal polyp measuring about 2 centimeters. Follow-up recommended at a clinically appropriate time PELVIS: No mass, adenopathy or free fluid. OSSEOUS STRUCTURES and ABDOMINAL WALL: Demineralized osseous structures and degenerative changes. Numerous thoracic and lumbar compression deformities that do not appear to be acute. Chronic superior and inferior pubic ramus fractures bilaterally. Probable subtle S2 fracture as was noted on the prior recent lumbar spine study. This is nondisplaced. OTHER: No free fluid or free air. IMPRESSION: 1. Bibasilar airspace process, right greater than left. The left base is probably atelectasis. The right base could be aspiration or pneumonia. Very large hiatal hernia, essentially an intrathoracic stomach. 2. Suggestion of a rectal polyp for which follow-up is recommended at a clinically appropriate time. Fecal retention and diverticulosis. No acute appearing GI finding. 3. Numerous old fractures including thoracic and lumbar vertebral bodies and superior and inferior pubic rami bilaterally nondisplaced S2 fracture probably acute as was noted on a July 07, [address] 4. No specific visible cause for abdominal pain Please note that all CT scans at this facility use dose modulation, iterative reconstruction, and/or weight-based dosing when appropriate to reduce radiation dose to as low as reasonably achievable. Dictated by Alexander Shaver MD @ 07/08/2022 7:18:14 AM (Electronically Signed)
--- NOTE | 2022-07-08 05:00 | P.IMCN_ITS ---
Date of Consult Consult date: 07/08/22 Primary Care Provider: Oleksandr Cordova MD Consult Narrative Reason for consult: fall with SDH Narrative: Briseida Fabian is a 87 year old female with PMH of Breast CA Hypothyroidism, HLD, diverticulosis, fatty liver, p/w a fall found to have sacral fx and SDH. Pt could not provide a good history prior to the fall with daughter states that she heard a noise and found her down with LOC for 30 sec. NO CP, SOB, N/v, does have abdominal pain the past few days with hx of diverticulitis in the past. In the ED with imaging shows S2 sed that is nondisplaced fracture of the sacrum as well as a 4mm subdural hematoma. [facility] contacted with ED provider discussed case with Dr. Whitaker neurosurgeon at [facility] who recommended transfer but due to bed situation and weather pt could not be transferred. Repeated CT head shows stable SDH of 4mm with stable vs and mental status therefore ED provider and family requested for admission locally for monitoring. She is to start on Keppra 500mg bidx 1 week and had a head lac that was repaired in the ED due for suture removal in 1weel. Review of Systems Status of ROS: Reports: 10 or more systems reviewed and unremarkable except as noted in History and below PFSH PFSH Surgical History Status post hysterectomy Status post laparoscopic cholecystectomy Status post left breast lumpectomy Social History Highest level of school completed/degree received: Associate degree: occupational, technical, vocational program Smoking Status: Never smoker Do you use any of these nicotine containing products: None Second hand tobacco smoke exposure: No How often do you have a drink containing alcohol: never How many standard drinks containing alcohol do you have on a typical day: 1 or 2 How often do you have six or more drinks on one occasion: Never AUDIT-C Alcohol total score: 0 Non-prescribed substance use: denies use Caffeine: Yes Little interest or pleasure in doing things: several days Feeling down, depressed, or hopeless: several days service: No Meds Home Medications and Allergies Home Medications Medication Instructions Recorded Confirmed Type budesonide 3 mg mg PO 12/22/21 History capsule,delayed,extended release acetaminophen 500 mg tablet 500 mg PO Q6H PRN 02/03/22 History (Tylenol Extra Strength) aspirin 81 mg chewable tablet 81 mg PO QDAY 02/03/22 History cholecalciferol (vitamin D3) 125 125 mcg PO QDAY 02/03/22 History mcg (5,000 unit) capsule lidocaine 5 % topical 1 patch topical QDAY 02/03/22 History patch-kinesiology tape, kit with alcohol pads Allergies Allergy/AdvReac Type Severity Reaction Status Date / Time morphine Allergy Intermediate hives Verified 05/31/22 12:06 Exam Const: Vital Signs, click to edit/add: Vital Signs - 24 hr 07/07/22 19:01 07/07/22 19:18 07/07/22 19:23 Temperature 98.6 F Pulse Rate 96 99 Pulse Rate [Left P ulse Oximeter] 96 Pulse Rate [Pulse Oximeter] Respiratory Rate 20 Blood Pressure 198/108 H Blood Pressure [Le ft Upper Arm] 141/98 H Blood Pressure [Ri ght Arm] Pulse Oximetry 96 94 92 Oxygen Delivery Me thod Room Air Oxygen Flow Rate 07/07/22 19:31 07/07/22 19:32 07/07/22 19:41 Temperature Pulse Rate 95 91 94 Pulse Rate [Left P ulse Oximeter] Pulse Rate [Pulse Oximeter] Respiratory Rate Blood Pressure 167/99 H 162/94 H Blood Pressure [Le ft Upper Arm] Blood Pressure [Ri ght Arm] Pulse Oximetry 97 97 96 Oxygen Delivery Me thod Oxygen Flow Rate 07/07/22 19:45 07/07/22 19:51 07/07/22 20:01 Temperature Pulse Rate 93 92 83 Pulse Rate [Left P ulse Oximeter] Pulse Rate [Pulse Oximeter] Respiratory Rate Blood Pressure 164/99 H 147/99 H Blood Pressure [Le ft Upper Arm] Blood Pressure [Ri ght Arm] Pulse Oximetry 88 93 93 Oxygen Delivery Me thod Oxygen Flow Rate 07/07/22 20:01 07/07/22 20:11 07/07/22 20:15 Temperature Pulse Rate 82 82 86 Pulse Rate [Left P ulse Oximeter] Pulse Rate [Pulse Oximeter] Respiratory Rate Blood Pressure 150/105 H Blood Pressure [Le ft Upper Arm] Blood Pressure [Ri ght Arm] Pulse Oximetry 94 92 94 Oxygen Delivery Me thod Oxygen Flow Rate 07/07/22 20:21 07/07/22 20:30 07/07/22 20:31 Temperature Pulse Rate 82 79 79 Pulse Rate [Left P ulse Oximeter] Pulse Rate [Pulse Oximeter] Respiratory Rate Blood Pressure 162/104 H 131/93 H Blood Pressure [Le ft Upper Arm] Blood Pressure [Ri ght Arm] Pulse Oximetry 96 95 95 Oxygen Delivery Me thod Oxygen Flow Rate 07/07/22 20:43 07/07/22 20:45 07/07/22 20:52 Temperature Pulse Rate 86 84 94 Pulse Rate [Left P ulse Oximeter] Pulse Rate [Pulse Oximeter] Respiratory Rate Blood Pressure 145/93 H 125/76 Blood Pressure [Le ft Upper Arm] Blood Pressure [Ri ght Arm] Pulse Oximetry 96 96 95 Oxygen Delivery Me thod Oxygen Flow Rate 07/07/22 21:00 07/07/22 21:02 07/07/22 21:22 Temperature Pulse Rate 89 90 87 Pulse Rate [Left P ulse Oximeter] Pulse Rate [Pulse Oximeter] Respiratory Rate Blood Pressure 151/90 H Blood Pressure [Le ft Upper Arm] Blood Pressure [Ri ght Arm] Pulse Oximetry 95 96 89 Oxygen Delivery Me thod Oxygen Flow Rate 07/07/22 21:30 07/07/22 21:34 07/07/22 21:44 Temperature Pulse Rate 90 94 93 Pulse Rate [Left P ulse Oximeter] Pulse Rate [Pulse Oximeter] Respiratory Rate Blood Pressure Blood Pressure [Le ft Upper Arm] Blood Pressure [Ri ght Arm] Pulse Oximetry 95 92 93 Oxygen Delivery Me thod Oxygen Flow Rate 07/07/22 21:45 07/07/22 21:54 07/07/22 22:00 Temperature Pulse Rate 93 92 93 Pulse Rate [Left P ulse Oximeter] Pulse Rate [Pulse Oximeter] Respiratory Rate Blood Pressure Blood Pressure [Le ft Upper Arm] Blood Pressure [Ri ght Arm] Pulse Oximetry 92 91 91 Oxygen Delivery Me thod Oxygen Flow Rate 07/07/22 22:15 07/07/22 22:30 07/07/22 22:45 Temperature Pulse Rate 92 100 95 Pulse Rate [Left P ulse Oximeter] Pulse Rate [Pulse Oximeter] Respiratory Rate Blood Pressure 146/75 H Blood Pressure [Le ft Upper Arm] Blood Pressure [Ri ght Arm] Pulse Oximetry 90 88 93 Oxygen Delivery Me thod Oxygen Flow Rate 07/07/22 22:46 07/07/22 22:47 07/07/22 23:00 Temperature Pulse Rate 95 99 Pulse Rate [Left P ulse Oximeter] Pulse Rate [Pulse Oximeter] Respiratory Rate Blood Pressure Blood Pressure [Le ft Upper Arm] Blood Pressure [Ri ght Arm] Pulse Oximetry 93 93 93 Oxygen Delivery Me thod Nasal Cannula Oxygen Flow Rate 2 07/07/22 23:03 07/07/22 23:15 07/07/22 23:30 Temperature Pulse Rate 98 101 H 96 Pulse Rate [Left P ulse Oximeter] Pulse Rate [Pulse Oximeter] Respiratory Rate Blood Pressure 146/84 H Blood Pressure [Le ft Upper Arm] Blood Pressure [Ri ght Arm] Pulse Oximetry 94 94 95 Oxygen Delivery Me thod Oxygen Flow Rate 07/07/22 23:36 07/07/22 23:45 07/08/22 00:00 Temperature Pulse Rate 99 98 93 Pulse Rate [Left P ulse Oximeter] Pulse Rate [Pulse Oximeter] Respiratory Rate Blood Pressure 138/90 H Blood Pressure [Le ft Upper Arm] Blood Pressure [Ri ght Arm] Pulse Oximetry 95 96 95 Oxygen Delivery Me thod Oxygen Flow Rate 07/08/22 00:19 07/08/22 00:30 07/08/22 00:31 Temperature Pulse Rate 98 95 93 Pulse Rate [Left P ulse Oximeter] Pulse Rate [Pulse Oximeter] Respiratory Rate Blood Pressure 119/96 H 131/78 Blood Pressure [Le ft Upper Arm] Blood Pressure [Ri ght Arm] Pulse Oximetry 94 95 95 Oxygen Delivery Me thod Oxygen Flow Rate 07/08/22 01:02 07/08/22 01:09 07/08/22 01:30 Temperature Pulse Rate 85 86 Pulse Rate [Left P ulse Oximeter] Pulse Rate [Pulse Oximeter] Respiratory Rate Blood Pressure 137/87 Blood Pressure [Le ft Upper Arm] Blood Pressure [Ri ght Arm] Pulse Oximetry 93 95 Oxygen Delivery Me thod Oxygen Flow Rate 07/08/22 01:32 07/08/22 02:00 07/08/22 02:17 Temperature 99 F Pulse Rate 91 92 Pulse Rate [Left P ulse Oximeter] Pulse Rate [Pulse Oximeter] 64 Respiratory Rate 16 Blood Pressure 126/73 Blood Pressure [Le ft Upper Arm] Blood Pressure [Ri ght Arm] 126/83 Pulse Oximetry 95 94 95 Oxygen Delivery Me thod Nasal Cannula Oxygen Flow Rate 1 07/08/22 02:17 Temperature Pulse Rate Pulse Rate [Left P ulse Oximeter] Pulse Rate [Pulse Oximeter] Respiratory Rate 16 Blood Pressure Blood Pressure [Le ft Upper Arm] Blood Pressure [Ri ght Arm] Pulse Oximetry 95 Oxygen Delivery Me thod Nasal Cannula Oxygen Flow Rate 1 HENMT: Common normals: EAC's normal Head and scalp: other (right head lac s/p repaired) External auditory canal: EAC's normal Mouth: oral and palatal mucosa normal Eye: Common normals: PERRL and EOMs intact bilaterally Pupil: PERRL Neck & C-Spine: Common normals: full ROM and no JVD Chest: Chest: symmetrical chest wall rise Resp: Common normals: normal respiratory effort and clear to auscultation bilaterally Auscultation: clear to auscultation bilaterally Cardio: Common normals: no JVD and regular rhythm Rhythm: regular rhythm GI: Palpation: other (LLQ tenderness) Neuro: Common normals: CN's II-XII intact bilaterally Labs Labs: Short CBC 07/08/22 Range/Units 01:50 WBC 5.76 (4.50-11.00) K/uL Hgb 13.3 (12.0-16.0) gm/dL Hct 40.3 (33.0-51.0) % Plt Count 233 (140-440) K/uL BMP 07/08/22 01:50 Sodium 139 Potassium 3.6 Chloride 106 Carbon Dioxide 24 BUN 16 Creatinine 0.7 Glucose 108 Calcium 8.9 Cardiac Enzymes 07/08/22 Range/Units 01:50 Troponin I 0.01 (0.01-0.04) ng/mL Liver Function 07/08/22 Range/Units 01:50 Total Bilirubin 0.6 (0.1-1.5) mg/dL AST 28 (12-35) U/L ALT 19 (4-35) U/L Alkaline Phosphatase 47 (40-150) U/L Albumin 4.1 (3.3-5.0) g/dL Assessment and Plan Assessment and plan (1) Acute subdural hematoma: Status: Acute Plan #4mm sdh s/p fall with repeat CT scan shows stable SDH #suspected mechanical fall # LLQ abdominal Pain concering for diverticulitis # sacral fx s/p fall # hypothyroidism # UTI # Hld - will continue with keppra BID for 1 week - will need to repeat CT head in 1 month and f/u with neuro surgery outpatient - BC x2 obtained and started on Ceftriaxone for UTI =PT/OT - check ct abd/pelvis with contrast w/ LLQ pain w/ hx of Diverticullitis - Pain control and stool softener Resume home meds when able DNI/DNR DVT ppx with scd
[2022-07-08] MEDS: cefTRIAXone 1 GM in 0.9 % SODIUM CHLORIDE Mini-bag 100 ML IVPB (05:35)
[2022-07-08] MEDS: 0.9 % SODIUM CHLORIDE 1000 ml 1,000 ML 75 ML IV (05:35)
[2022-07-08 06:33] LABS: Hematocrit 38.5 % (33.0-51.0); Hemoglobin* 12.8 gm/dL (12.0-16.0); Mean Corpuscular HGB Conc 33 gm/dL (32-36); Mean Corpuscular Hemoglobin 31 pg (26-34); Mean Corpuscular Volume 94 fL (80-100); Platelet Count* 211 K/uL (140-440); White Blood Count* 5.03 K/uL (4.50-11.00)
[2022-07-08 06:38] LABS: Slide Review Reflex No
[2022-07-08 06:45] LABS: Albumin* 3.9 g/dL (3.3-5.0); Chloride* 107 mmol/L (96-114)
[2022-07-08 06:46] LABS: Potassium* 3.5 mmol/L (3.6-5.1); Sodium* 140 mmol/L (135-149)
[2022-07-08 06:48] LABS: Aspartate Amino Transferase* 28 U/L (12-35); Bilirubin Total* 0.6 mg/dL (0.1-1.5); Carbon Dioxide* 24 mmol/L (20-32); Creatinine* 0.7 mg/dL (0.5-1.5); Est. Creatinine Clearance* 31.72; Estimated Glomerular Filt Rate 85 ml/min; Total Protein* 7.3 g/dL (6.0-8.3)
[2022-07-08 06:49] LABS: Alanine Aminotransferase* 19 U/L (4-35); Alkaline Phosphatase* 44 U/L (40-150); Blood Urea Nitrogen* 16 mg/dL (7-30); Calcium* 8.6 mg/dL (8.4-10.6); Glucose* 93 mg/dL (60-115)
[2022-07-08 06:50] LABS: INR 1.08 (0.91-1.10); Prothrombin Time 14.6 Seconds
[2022-07-08 07:04] LABS: Troponin I* < 0.01 ng/mL (0.01-0.04)
[2022-07-08 07:19] LABS: TSH With Reflex to FT4* 0.823 uIU/mL (0.270-4.200)
--- NOTE | 2022-07-08 07:33 | PC.NURSE ---
VSS on RA. Patient is alert and oriented per baseline, able to call for help. PRN Tylenol for pain. IV fluid running at 75 ml/hr. Assist of one with transfers.
--- NOTE | 2022-07-08 11:30 | P.IMHP_ITS ---
Hospitalist- H&P: HPI History of Present Illness Date Seen: 07/08/22 Chief complaint: Fall LOC Narrative: Briseida Fabian is a 87 year old female after a fall at home. Patient fell at home. She does not remember details of the fall. She does not recall feeling ill or lightheaded prior to the fall. She was unconscious after her fall and head injury. She did wake up after about 30 seconds as people gathered around her. She was brought to the emergency room for evaluation. In the emergency department she was found to have a small subdural hematoma and a sacral fracture. Repeat CT of the head showed no increase in the subdural hematoma. Initial plan was to transfer to tertiary care. This was not possible due to no bed availability and weather conditions not permitting travel. Overnight she has done fairly well. She does report she has a headache but it is not bothering her enough to take medication for it. She also reports that she has pain in her very low back. She indicates that the area around the right SI joint as the placed for she has the most pain. She has chronic low back pain which is also bothering her today but not worse than usual. She reports that she has not had any recent illness, shortness of breath, cough, chest pain, fever, nausea, vomiting, abdominal pain, or new diarrhea. She does have occasional episodes of diarrhea related to her chronic colitis which has not changed recently. She is not aware of any bleeding problems. She has not had previous history of syncope or seizures. [facility] Medical History (Updated 07/08/22 @ 11:47 by Jose Manuel Arcos MD) Asymptomatic bacteriuria Compression fracture Concussion Diverticulosis of intestine Hyperlipidemia Hypothyroidism Loss of consciousness Malignant neoplasm of breast Microscopic colitis Osteoporosis Polyp of colon Spinal stenosis of lumbar region Spondylolisthesis of lumbosacral region Steatosis of liver Surgical History Status post hysterectomy Status post laparoscopic cholecystectomy Status post left breast lumpectomy Social History (Updated 07/08/22 @ 11:37 by Jose Manuel Arcos MD) Narrative: She lives with her daughter, Mariaelena, and her daughter's family. She reports this has been going well for her and she is quite grateful for this arrangement. She indicates her daughter and her son, James, would be healthcare power of eggs inspector. Her code status is DNR. She does not smoke. She does not drink alcohol. Highest level of school completed/degree received: Associate degree: occupational, technical, vocational program Smoking Status: Never smoker Do you use any of these nicotine containing products: None Second hand tobacco smoke exposure: No How often do you have a drink containing alcohol: never How many standard drinks containing alcohol do you have on a typical day: 1 or 2 How often do you have six or more drinks on one occasion: Never AUDIT-C Alcohol total score: 0 Non-prescribed substance use: denies use Caffeine: Yes Little interest or pleasure in doing things: several days Feeling down, depressed, or hopeless: several days service: No Meds Home Medications and Allergies Home Medications Medication Instructions Recorded Confirmed Type acetaminophen 500 mg tablet 500 mg PO Q6H PRN 02/03/22 07/08/22 History (Tylenol Extra Strength) aspirin 81 mg chewable tablet 81 mg PO DAILY 02/03/22 07/08/22 History cholecalciferol (vitamin D3) 125 125 mcg PO DAILY 02/03/22 07/08/22 History mcg (5,000 unit) capsule lidocaine 5 % topical 1 patch topical DAILY 02/03/22 07/08/22 History patch-kinesiology tape, kit with alcohol pads atorvastatin 10 mg tablet 10 mg PO HS 07/08/22 07/08/22 History calcium carbonate 600 mg-vitamin 1 tab PO DAILY 07/08/22 07/08/22 History D3 5 mcg (200 unit) tablet levothyroxine 75 mcg tablet 75 mcg PO DAILY 07/08/22 07/08/22 History Home Medication Comments: She takes tramadol 50 mg twice a week before going to buddhist. Allergies Allergy/AdvReac Type Severity Reaction Status Date / Time morphine Allergy Intermediate hives Verified 05/31/22 12:06 Exam Narrative: Exam Narrative: She is alert and oriented to her circumstances. She gives good details of her history including all of her medications. Head is notable for a sutured laceration on her right forehead extending irregularly but vertically above her right eyebrow. His there is no obvious erythema or drainage noted. This area is mildly tender to palpate without obvious abnormality of the underlying skull. Above this is an area of bruising and abrasion in her hairline. No other obvious trauma. Palpation of her neck is nontender. She moves her neck quite well and reports just mild stiffness posteriorly in her neck. No midline tenderness. Eyes are normal. Pupils are equal round reactive to light. Extraocular movements are full. Visual mitchell are intact. She has no facial asymmetry. Facial sensation is intact. Oropharynx is normal. Tongue is midline. Respirations are clear to auscultation. Cardiovascular: S1, S2, regular rate and rhythm. No murmur gallop or rub. Abdomen: Bowel sounds active. Abdomen is soft without tenderness or mass. External genitalia normal. 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 On the left she is slightly weaker at 5- over 5 in though same muscle groups tests. [id number] is accurate without tremor or dysmetria. Lower extremity strength testing shows 5/5 strength in hip flexion, knee flexion and extension, ankle dorsiflexion and plantar flexion and great toe dorsiflexion bilaterally. She has some discomfort with testing of her right lower extremity strength. That discomfort is felt in the area of her right buttock especially with testing hip flexion and knee flexion and extension. Heel-joy is accurate bilaterally. Const: Vital Signs, click to edit/add: Vital Signs - 24 hr 07/07/22 19:01 07/07/22 19:18 07/07/22 19:23 Temperature 98.6 F Pulse Rate 96 99 Pulse Rate [Left P ulse Oximeter] 96 Pulse Rate [Pulse Oximeter] Respiratory Rate 20 Blood Pressure 198/108 H Blood Pressure [Le ft Upper Arm] 141/98 H Blood Pressure [Ri ght Arm] Pulse Oximetry 96 94 92 Oxygen Delivery Me thod Room Air Oxygen Flow Rate 07/07/22 19:31 07/07/22 19:32 07/07/22 19:41 Temperature Pulse Rate 95 91 94 Pulse Rate [Left P ulse Oximeter] Pulse Rate [Pulse Oximeter] Respiratory Rate Blood Pressure 167/99 H 162/94 H Blood Pressure [Le ft Upper Arm] Blood Pressure [Ri ght Arm] Pulse Oximetry 97 97 96 Oxygen Delivery Me thod Oxygen Flow Rate 07/07/22 19:45 07/07/22 19:51 07/07/22 20:01 Temperature Pulse Rate 93 92 83 Pulse Rate [Left P ulse Oximeter] Pulse Rate [Pulse Oximeter] Respiratory Rate Blood Pressure 164/99 H 147/99 H Blood Pressure [Le ft Upper Arm] Blood Pressure [Ri ght Arm] Pulse Oximetry 88 93 93 Oxygen Delivery Me thod Oxygen Flow Rate 07/07/22 20:01 07/07/22 20:11 07/07/22 20:15 Temperature Pulse Rate 82 82 86 Pulse Rate [Left P ulse Oximeter] Pulse Rate [Pulse Oximeter] Respiratory Rate Blood Pressure 150/105 H Blood Pressure [Le ft Upper Arm] Blood Pressure [Ri ght Arm] Pulse Oximetry 94 92 94 Oxygen Delivery Me thod Oxygen Flow Rate 07/07/22 20:21 07/07/22 20:30 07/07/22 20:31 Temperature Pulse Rate 82 79 79 Pulse Rate [Left P ulse Oximeter] Pulse Rate [Pulse Oximeter] Respiratory Rate Blood Pressure 162/104 H 131/93 H Blood Pressure [Le ft Upper Arm] Blood Pressure [Ri ght Arm] Pulse Oximetry 96 95 95 Oxygen Delivery Me thod Oxygen Flow Rate 07/07/22 20:43 07/07/22 20:45 07/07/22 20:52 Temperature Pulse Rate 86 84 94 Pulse Rate [Left P ulse Oximeter] Pulse Rate [Pulse Oximeter] Respiratory Rate Blood Pressure 145/93 H 125/76 Blood Pressure [Le ft Upper Arm] Blood Pressure [Ri ght Arm] Pulse Oximetry 96 96 95 Oxygen Delivery Me thod Oxygen Flow Rate 07/07/22 21:00 07/07/22 21:02 07/07/22 21:22 Temperature Pulse Rate 89 90 87 Pulse Rate [Left P ulse Oximeter] Pulse Rate [Pulse Oximeter] Respiratory Rate Blood Pressure 151/90 H Blood Pressure [Le ft Upper Arm] Blood Pressure [Ri ght Arm] Pulse Oximetry 95 96 89 Oxygen Delivery Me thod Oxygen Flow Rate 07/07/22 21:30 07/07/22 21:34 07/07/22 21:44 Temperature Pulse Rate 90 94 93 Pulse Rate [Left P ulse Oximeter] Pulse Rate [Pulse Oximeter] Respiratory Rate Blood Pressure Blood Pressure [Le ft Upper Arm] Blood Pressure [Ri ght Arm] Pulse Oximetry 95 92 93 Oxygen Delivery Me thod Oxygen Flow Rate 07/07/22 21:45 07/07/22 21:54 07/07/22 22:00 Temperature Pulse Rate 93 92 93 Pulse Rate [Left P ulse Oximeter] Pulse Rate [Pulse Oximeter] Respiratory Rate Blood Pressure Blood Pressure [Le ft Upper Arm] Blood Pressure [Ri ght Arm] Pulse Oximetry 92 91 91 Oxygen Delivery Me thod Oxygen Flow Rate 07/07/22 22:15 07/07/22 22:30 07/07/22 22:45 Temperature Pulse Rate 92 100 95 Pulse Rate [Left P ulse Oximeter] Pulse Rate [Pulse Oximeter] Respiratory Rate Blood Pressure 146/75 H Blood Pressure [Le ft Upper Arm] Blood Pressure [Ri ght Arm] Pulse Oximetry 90 88 93 Oxygen Delivery Me thod Oxygen Flow Rate 07/07/22 22:46 07/07/22 22:47 07/07/22 23:00 Temperature Pulse Rate 95 99 Pulse Rate [Left P ulse Oximeter] Pulse Rate [Pulse Oximeter] Respiratory Rate Blood Pressure Blood Pressure [Le ft Upper Arm] Blood Pressure [Ri ght Arm] Pulse Oximetry 93 93 93 Oxygen Delivery Me thod Nasal Cannula Oxygen Flow Rate 2 07/07/22 23:03 07/07/22 23:15 07/07/22 23:30 Temperature Pulse Rate 98 101 H 96 Pulse Rate [Left P ulse Oximeter] Pulse Rate [Pulse Oximeter] Respiratory Rate Blood Pressure 146/84 H Blood Pressure [Le ft Upper Arm] Blood Pressure [Ri ght Arm] Pulse Oximetry 94 94 95 Oxygen Delivery Me thod Oxygen Flow Rate 07/07/22 23:36 07/07/22 23:45 07/08/22 00:00 Temperature Pulse Rate 99 98 93 Pulse Rate [Left P ulse Oximeter] Pulse Rate [Pulse Oximeter] Respiratory Rate Blood Pressure 138/90 H Blood Pressure [Le ft Upper Arm] Blood Pressure [Ri ght Arm] Pulse Oximetry 95 96 95 Oxygen Delivery Me thod Oxygen Flow Rate 07/08/22 00:19 07/08/22 00:30 07/08/22 00:31 Temperature Pulse Rate 98 95 93 Pulse Rate [Left P ulse Oximeter] Pulse Rate [Pulse Oximeter] Respiratory Rate Blood Pressure 119/96 H 131/78 Blood Pressure [Le ft Upper Arm] Blood Pressure [Ri ght Arm] Pulse Oximetry 94 95 95 Oxygen Delivery Me thod Oxygen Flow Rate 07/08/22 01:02 07/08/22 01:09 07/08/22 01:30 Temperature Pulse Rate 85 86 Pulse Rate [Left P ulse Oximeter] Pulse Rate [Pulse Oximeter] Respiratory Rate Blood Pressure 137/87 Blood Pressure [Le ft Upper Arm] Blood Pressure [Ri ght Arm] Pulse Oximetry 93 95 Oxygen Delivery Me thod Oxygen Flow Rate 07/08/22 01:32 07/08/22 02:00 07/08/22 02:17 Temperature 99 F Pulse Rate 91 92 Pulse Rate [Left P ulse Oximeter] Pulse Rate [Pulse Oximeter] 64 Respiratory Rate 16 Blood Pressure 126/73 Blood Pressure [Le ft Upper Arm] Blood Pressure [Ri ght Arm] 126/83 Pulse Oximetry 95 94 95 Oxygen Delivery Me thod Nasal Cannula Oxygen Flow Rate 1 07/08/22 02:17 Temperature Pulse Rate Pulse Rate [Left P ulse Oximeter] Pulse Rate [Pulse Oximeter] Respiratory Rate 16 Blood Pressure Blood Pressure [Le ft Upper Arm] Blood Pressure [Ri ght Arm] Pulse Oximetry 95 Oxygen Delivery Me thod Nasal Cannula Oxygen Flow Rate 1 Documenting provider has reviewed patient's vital signs: yes Hospitalist - H&P: Result Labs Labs: Short CBC 07/08/22 07/08/22 Range/Units 01:50 05:58 WBC 5.76 5.03 (4.50-11.00) K/uL Hgb 13.3 12.8 (12.0-16.0) gm/dL Hct 40.3 38.5 (33.0-51.0) % Plt Count 233 211 (140-440) K/uL BMP 07/08/22 07/08/22 01:50 05:58 Sodium 139 140 Potassium 3.6 3.5 L Chloride 106 107 Carbon Dioxide 24 24 BUN 16 16 Creatinine 0.7 0.7 Glucose 108 93 Calcium 8.9 8.6 Cardiac Enzymes 07/08/22 07/08/22 Range/Units 01:50 05:58 Troponin I 0.01 < 0.01 L (0.01-0.04) ng/mL Liver Function 07/08/22 07/08/22 Range/Units 01:50 05:58 Total Bilirubin 0.6 0.6 (0.1-1.5) mg/dL AST 28 28 (12-35) U/L ALT 19 19 (4-35) U/L Alkaline Phosphatase 47 44 (40-150) U/L Albumin 4.1 3.9 (3.3-5.0) g/dL Assessment and Plan Assessment and plan (1) Acute subdural hematoma: Problem comment: Stable findings and repeat CT. Repeat head CT in 1 month and follow up outpatient with neuro surgery. Keppra 500 mg b.i.d. for 1 week for seizure prophylaxis Status: Acute (2) Loss of consciousness: Problem comment: Loss of consciousness was brief and I suspect part of a concussion. At this point syncope remains a possibility. Seizure seems unlikely. Status: Acute (3) Concussion: Problem comment: Loss of consciousness associated with head injury and subdural hematoma. Continue assessment for ongoing neurologic impairment Status: Acute (4) Sacral fracture: Problem comment: Symptomatic treatment Status: Acute (5) Laceration of forehead: Problem comment: Sutures out in 10 days Status: Acute (6) Compression fracture: Problem comment: T9, T11, L1, L2. Status: Chronic (7) Asymptomatic bacteriuria: Status: Acute (8) Osteoporosis: Problem comment: On appropriate therapy Status: Chronic (9) Spondylolisthesis of lumbosacral region: Problem comment: L4-L5 AND L5-S1 Status: Chronic (10) Spinal stenosis of lumbar region: Status: Chronic (11) Closed head injury: Problem comment: Small subdural hematoma is stable. Brief loss of consciousness indicating concussion Status: Acute Plan Patient is admitted to the hospital for observation. Will get evaluation for sequelae of her concussion. Cardiac monitoring for syncope. Echocardiogram was planned but due to poor weather and road conditions unable to be done today. Could be done as an outpatient. Assessment for her safety and returning home to live with her daughter. Work on pain management. For now will continue her home medications, tramadol and acetaminophen. Next week she could be on a low dose of NSAIDs if there are no concerns about ongoing bleeding and there are no other contraindications. She does use occasional NSAIDs at home. Total time spent today is 80 minutes, 50 minutes in coordination of care and discussing with patient and other providers ongoing evaluation management of concussion, chronic pain, subdural hematoma
[2022-07-08] MEDS: PERFLUTREN LIPID MICROSPHERES 2 ML VIAL IV (14:50)
[2022-07-08] MEDS: TRAMADOL HCL 50 MG TABLET PO (15:56)
--- NOTE | 2022-07-08 18:57 | PC.NURSE ---
shift note: pt medicated with tylenol and tramadol for lower back pain and MOSLEY today with relief. pt BP stable. pt afeb. Pt up ambulating in [place] with steady gait with 1/walker. Rt eye swollen with ice applied throughout the day for comfort. pt denies dizziness or visual problems. IV patent to Rt AC. Pt had moderate BM
[2022-07-08 19:20] LABS: Appearance Urine Clear (Clear); Bilirubin Urine Negative (Negative); Blood Urine Negative (Negative); Color Urine Yellow (Yellow); Glucose Urine Negative (Negative); Ketones Urine Trace (Negative); Leukocyte Esterase Urine Trace (Negative); Nitrite Urine Negative (Negative); Protein Urine Negative (Negative); Specific Gravity Urine 1.015 (1.000-1.030); Urobilinogen Urine 0.2 (0.2-1.0)
[2022-07-08 19:26] LABS: RBC Urine 0-2 (0-2); Squamous Epithelial Cell Urine Few (None-Few); WBC Urine 0-2 (0-5)
[2022-07-08] MEDS: ATORVASTATIN 10 MG TABLET PO (20:52)
[2022-07-08] MEDS: MELATONIN 3 MG TABLET PO (20:52)
[2022-07-08] MEDS: SODIUM CHLORIDE 0.9 % (FLUSH) 10 ML SYRINGE 5 ML IVF (20:53)
[2022-07-09 03:38] VITALS: BP 132/75; PULSE 81; RESP 18; TEMP 37.1; O2SAT 93
[2022-07-09] MEDS: ACETAMINOPHEN 325 MG TABLET 650 MG PO (03:44)
[2022-07-09] MEDS: SODIUM CHLORIDE 0.9 % (FLUSH) 10 ML SYRINGE 5 ML IVF ×2 (05:38→09:49)
[2022-07-09] MEDS: cefTRIAXone 1 GM in 0.9 % SODIUM CHLORIDE Mini-bag 100 ML IVPB (06:01)
[2022-07-09] MEDS: LEVOTHYROXINE 75 MCG TABLET PO (06:55)
--- NOTE | 2022-07-09 07:33 | PC.NURSE ---
Status [id number] Alert and oriented. Pleasant and cooperative. PRN Tylenol given x2. Requiring 1L of supplemental oxygen overnight. BP stable. Afebrile. Telemetry monitoring, normal sinus rhythm. Up with stand by and walker/belt. Crackles heard to LLL, brought in I.S. and educated patient on how to use. Continues on IV ceftriaxone. Using ice packs to right forehead/eye overnight. Pt observed resting between cares.
--- NOTE | 2022-07-09 08:40 | CRLHL7_ITS ---
For Patients: As a result of the Century Cures Act, medical imaging exams and procedure reports are released immediately into your electronic medical record. You may view this report before your referring provider. If you have questions, please contact your health care provider. HISTORY: Right hip pain. FINDINGS: The pelvis was studied in the axial plane. Sagittal, coronal and axial images were obtained through the right hip region. Old healed fractures are noted of the right pubic and ischial rami. No acute type pelvic bone or proximal femoral fracture is noted. No findings for avascular necrosis. Mild osteoarthritic change is noted of the right hip joint. There is widening of the left sacroiliac joint with moderate arthritic change noted. Severe degenerative disc disease is noted. No soft tissue mass or fluid collection is noted. IMPRESSION: Negative study for acute fracture. Please note that all CT scans at this facility use dose modulation, iterative reconstruction, and/or weight-based dosing when appropriate to reduce radiation dose to as low as reasonably achievable. Dictated by Aakash Villaseñor MD @ 07/09/2022 9:19:46 AM (Electronically Signed)
[2022-07-09 08:46] LABS: Basophils Absolute Auto 0.02 K/uL (0.00-0.30); Basophils Percent Auto 0.4 % (0.0-3.0); Eosinophils Absolute Auto 0.07 K/uL (0.00-0.50); Eosinophils Percent Auto 1.3 % (0.0-7.0); Hematocrit 38.2 % (33.0-51.0); Hemoglobin* 12.4 gm/dL (12.0-16.0); Immature Granulocytes Abs Auto 0.01 K/uL (0.00-0.30); Immature Granulocytes Pct Auto 0.2 %; Lymphocytes Absolute Auto 1.48 K/uL (0.90-2.90); Lymphocytes Percent Auto 27.5 % (20-44); Mean Corpuscular HGB Conc 33 gm/dL (32-36); Mean Corpuscular Hemoglobin 31 pg (26-34); Mean Corpuscular Volume 96 fL (80-100); Monocytes Percent Auto 11.3 % (0.0-11.0); Neutrophils Absolute Auto 3.19 K/uL (1.7-7.0); Neutrophils Percent Auto 59.3 % (42.0-72.0); Platelet Count* 209 K/uL (140-440); RDW Coefficient of Variation % 14.3 % (11.5-15.5); Red Blood Count 3.98 m/uL (4.00-5.20); White Blood Count* 5.38 K/uL (4.50-11.00)
[2022-07-09 08:49] LABS: Slide Review Reflex No
[2022-07-09 08:58] LABS: Chloride* 106 mmol/L (96-114); Potassium* 3.7 mmol/L (3.6-5.1); Sodium* 141 mmol/L (135-149)
[2022-07-09 09:00] VITALS: BP 123/62; PULSE 95; RESP 18; TEMP 36.8; O2SAT 95; O2SAT 98
[2022-07-09 09:01] LABS: Blood Urea Nitrogen* 17 mg/dL (7-30); Carbon Dioxide* 27 mmol/L (20-32); Creatinine* 0.7 mg/dL (0.5-1.5); Est. Creatinine Clearance* 32.31; Estimated Glomerular Filt Rate 85 ml/min
[2022-07-09 09:02] LABS: Calcium* 8.6 mg/dL (8.4-10.6); Glucose* 93 mg/dL (60-115)
[2022-07-09 09:19] LABS: Procalcitonin* 0.05 ng/mL (<0.50)
[2022-07-09] MEDS: LIDOCAINE 5% PATCH 1 PATCH TRANSDERMA (09:47)
[2022-07-09] MEDS: ASPIRIN 81 MG TAB.CHEW PO (09:48)
[2022-07-09] MEDS: levETIRAcetam 500 MG TABLET PO (09:49)
--- NOTE | 2022-07-09 10:01 | PM.DS1 ---
DS: Providers Provider Date Seen: 07/09/22 Date of admission: 07/08/22 04:18 Primary care physician: Oleksandr Cordova MD Admitting Clinician: Trinidad Ricardo MD Consults: 07/08/22 03:24 Consult to Occupational Therapy [CONS] Routine Comment: Reason(s) for OT Consult:: Evaluate and Treat Any Restrictions?:: Unknown 07/08/22 07:40 Consult to Physical Therapy [CONS] Routine Comment: Reason(s) for PT Consult:: Evaluate and Treat Any Restrictions?:: No Restrictions Attending Physician on discharge: Trinidad Ricardo MD DS: Summary Hospital Course Hospital Course: Brief Hospital Summary Briseida Fabian is a 87 year old female with PMH of Breast CA Hypothyroidism, HLD, diverticulosis, fatty liver, p/w a fall found to have sacral fx and SDH. In the emergency department she was found to have a small subdural hematoma and a sacral fracture.? Repeat CT of the head showed no increase in the subdural hematoma. Per NS recommendations she was started on Keppra for seizure ppx. Her aspirin was held. She will need outpatient CT head in one month. She was evaluated by PT and OT who recommended outpatient therapy evaluation. Echo with normal EF and no evidence of aortic stenosis. Etiology of fall at this point is unclear but it is possible that she had a fall with subsequent head trauma causing loss of consciousness vs syncope or seizrue. She will be discharging with Family. She uses walker at home and should continue using walker. Lives with daughter Outpatient Recommendations Close follow up with PCP Referral to NS CT head in one month hold aspirin Keppra for sz prophylaxis for 7 days outpatient PT/OT referral made Suture removal in 10 days She uses walker at home and should continue using walker [facility] [place] with on 07/12 Marquez Matos ([phone]) will call you with a Neurosurgery appointment for Hospital follow up Subdural Hematoma CT AP IMPRESSION: 1. Bibasilar airspace process, right greater than left. The left base is probably atelectasis. The right base could be aspiration or pneumonia. Very large hiatal hernia, essentially an intrathoracic stomach. 2. Suggestion of a rectal polyp for which follow-up is recommended at a clinically appropriate time. Fecal retention and diverticulosis. No acute appearing GI finding. 3. Numerous old fractures including thoracic and lumbar vertebral bodies and superior and inferior pubic rami bilaterally nondisplaced S2 fracture probably acute as was noted on a July 07, [address] 4. No specific visible cause for abdominal pain cthead Stable small right frontotemporal convexity subdural hematoma. No new intracranial hemorrhage. Echo-TTE See EMR for full report 1). Normal global systolic function with estimated EF 60-65% 2) Grade I diastolic dysfunction 3) No aortic stenosis or regurgitation HOSPITAL SUMMARY Date of Consult Consult date: 07/08/22 Primary Care Provider: Oleksandr Cordova MD Consult Narrative Reason for consult: fall with SDH Narrative: Briseida Fabian is a 87 year old female with PMH of Breast CA Hypothyroidism, HLD, diverticulosis, fatty liver, p/w a fall found to have sacral fx and SDH. Pt could not provide a good history prior to the fall with daughter states that she heard a noise and found her down with LOC for 30 sec. NO CP, SOB, N/v, does have abdominal pain the past few days with hx of diverticulitis in the past. In the ED with imaging shows S2 sed that is nondisplaced fracture of the sacrum as well as a 4mm subdural hematoma. [facility] contacted with ED provider discussed case with Dr. Whitaker neurosurgeon at [facility] who recommended transfer but due to bed situation and weather pt could not be transferred. Repeated CT head shows stable SDH of 4mm with stable vs and mental status therefore ED provider and family requested for admission locally for monitoring. She is to start on Keppra 500mg bidx 1 week and had a head lac that was repaired in the ED due for suture removal in 1weel. Chief complaint: Fall LOC Narrative: Briseida Fabian is a 87 year old female after a fall at home.? Patient fell at home.? She does not remember details of the fall.? She does not recall feeling ill or lightheaded prior to the fall.? She was unconscious after her fall and head injury.? She did wake up after about 30 seconds as people gathered around her.? She was brought to the emergency room for evaluation.? In the emergency department she was found to have a small subdural hematoma and a sacral fracture.? Repeat CT of the head showed no increase in the subdural hematoma.? Initial plan was to transfer to tertiary care.? This was not possible due to no bed availability and weather conditions not permitting travel.? Overnight she has done fairly well.? She does report she has a headache but it is not bothering her enough to take medication for it.? She also reports that she has pain in her very low back.? She indicates that the area around the right SI joint as the placed for she has the most pain.? She has chronic low back pain which is also bothering her today but not worse than usual. She reports that she has not had any recent illness, shortness of breath, cough, chest pain, fever, nausea, vomiting, abdominal pain, or new diarrhea.? She does have occasional episodes of diarrhea related to her chronic colitis which has not changed recently.? She is not aware of any bleeding problems.? She has not had previous history of syncope or seizures. CT HIP Negative study for acute fracture. Time Spent with Patient Time attestation: Total time spent providing and/or coordinating discharge services: Exam Narrative: Exam Narrative: Gen: no acute distress HEENT: +Facial abrasion with subsequent suturing in place EOMI mmm Neck: Supple CV: RRR normal s1 s2 Lungs: CTAB Abd: Soft,nt, nd Neuro: Alert, oriented, CN grossly intact, moves extremities able to follow commands Psych: appropriate affect MSK: age appropriate muscle mass Skin; Warm, dry no rash on face Const: Vital Signs, click to edit/add: Vital Signs - 24 hr 07/08/22 11:00 07/08/22 15:00 07/08/22 15:00 Temperature 98.2 F Pulse Rate Pulse Rate [Pulse Oximeter] 62 Respiratory Rate 18 18 Blood Pressure [Ri t Arm] 134/68 Pulse Oximetry 96 96 90 Oxygen Delivery Me thod Room Air Room Air Oxygen Flow Rate 1 07/08/22 15:00 07/08/22 15:00 07/08/22 15:00 Temperature 98.4 F Pulse Rate 86 Pulse Rate [Pulse Oximeter] 78 92 Respiratory Rate 18 18 Blood Pressure [Ri t Arm] 150/82 H Pulse Oximetry 92 Oxygen Delivery Me thod Room Air Oxygen Flow Rate 07/08/22 19:00 07/08/22 23:00 07/08/22 23:00 Temperature 99.1 F 99 F Pulse Rate Pulse Rate [Pulse Oximeter] 82 75 Respiratory Rate 18 18 Blood Pressure [Ri ght Arm] 136/78 116/58 L Pulse Oximetry 92 93 93 Oxygen Delivery Me thod Room Air Nasal Cannula Oxygen Flow Rate 1 07/08/22 23:00 07/08/22 23:00 07/08/22 23:00 Temperature Pulse Rate 84 Pulse Rate [Pulse Oximeter] 75 Respiratory Rate 18 Blood Pressure [Ri ght Arm] Pulse Oximetry 93 Oxygen Delivery Me thod Nasal Cannula Oxygen Flow Rate 1 07/09/22 03:38 Temperature 98.7 F Pulse Rate Pulse Rate [Pulse Oximeter] 81 Respiratory Rate 18 Blood Pressure [Ri ght Arm] 132/75 Pulse Oximetry 93 Oxygen Delivery Me thod Nasal Cannula Oxygen Flow Rate 1 DS: Data Data Completed and Pending Labs on day of discharge: Labs from last 24 hours 07/09/22 07/09/22 07/08/22 08:40 08:40 10:22 WBC 5.38 RBC 3.98 L Hgb 12.4 Hct 38.2 MCV 96 MCH 31 MCHC 33 RDW Coeff of Marlen 14.3 Plt Count 209 Neut % (Auto) 59.3 Lymph % (Auto) 27.5 [place] % (Auto) 11.3 H Eos % (Auto) 1.3 Baso % (Auto) 0.4 Neut # (Auto) 3.19 Lymph # (Auto) 1.48 [place] # (Auto) 0.60 Eos # (Auto) 0.07 Baso # (Auto) 0.02 Sodium 141 Potassium 3.7 Chloride 106 Carbon Dioxide 27 BUN 17 Creatinine 0.7 Estimated Creat Clear 32.31 Estimated GFR 85 Glucose 93 Calcium 8.6 Procalcitonin 0.05 Urine Color Yellow Urine Appearance Clear Urine pH 5.0 Ur Specific [place] 1.015 Urine Protein Negative Urine Glucose (UA) Negative Urine Ketones Trace A Urine Blood Negative Urine Nitrite Negative Urine Bilirubin Negative Urine Urobilinogen 0.2 Ur Leukocyte Esterase Trace A Urine RBC 0-2 Urine WBC 0-2 Ur Squamous Epith Cells Few Urine Bacteria None Preliminary micro results at discharge 07/08/22 10:22 Urine Culture - Preliminary Urine,Clean Catch NO GROWTH AFTER 24 HOURS 07/08/22 05:58 Blood Culture - Preliminary Blood NO GROWTH AFTER 24 HOURS 07/08/22 05:58 Blood Culture - Preliminary Blood NO GROWTH AFTER 24 HOURS Discharge Plan Discharge Disposition: Home w/ Parent or Adult Date of Admission: 07/08/22 04:18 Attending Provider on Discharge: Efra Condon Primary Care Provider: Oleksandr Cordova Condition: Improved Anticipated Discharge Date/Time: 07/09/22 09:48 Discharge Medications: New levetiracetam [Keppra] 500 mg tablet 500 mg PO BID Qty: 14 0RF Rx Instructions: Take 500 mg PO BID for 7 days for seizure prophylaxis Continued atorvastatin 10 mg tablet 10 mg PO HS Rx Instructions: TAKE 1 TABLET BY MOUTH AT BEDTIME . APPOINTMENT REQUIRED FOR FUTURE REFILLS levothyroxine 75 mcg tablet 75 mcg PO DAILY calcium carbonate-vitamin D3 600 mg-5 mcg (200 unit) tablet 1 tab PO DAILY tramadol 50 mg tablet 50 - 100 mg PO Q6H PRN (Reason: pain) alendronate 70 mg tablet 70 mg PO QWEEK Qty: 4 11RF lidocaine-kinesiology tape 5 % kit 1 patch topical DAILY Rx Instructions: leave on most painful area for up to 12 hrs acetaminophen [Tylenol Extra Strength] 500 mg tablet 500 mg PO Q6H PRN cholecalciferol (vitamin D3) 125 mcg (5,000 unit) capsule 125 mcg PO DAILY Held aspirin 81 mg tablet,chewable 81 mg PO DAILY Hold Instructions: Resume on 07/19/22. Discharge Orders: Discharge Order (Routine); Ordered 07/09/22 Ordered By: Efra Condon Patient Education: Levetiracetam (By mouth) (Keppra, Keppra XR), Intracranial Hematoma (GEN) Activity Level: No strenuous activity and Up with assist Discharge Diet: Other Diet Detail: Resume previous Home diet Follow Up Appointments: Oleksandr Cordova MD [Primary Care Provider] - 07/12/22 11:15 am ([facility] [place] with Dr.Randall Marquez Matos ([phone]) will call you with a Neurosurgery appointment for Hospital follow up Subdural Hematoma ) Forms: [facility] Info Instructions
[2022-07-09] MEDS: TRAMADOL HCL 50 MG TABLET PO (10:22)
[2022-07-09 10:36] VITALS: BP 139/79; BP 141/70; BP 154/79; PULSE 76; PULSE 78; PULSE 80
[2022-07-09 10:54] VITALS: BP 126/73; PULSE 84; RESP 18; TEMP 37.1
[2022-07-09 14:00] VITALS: BP 141/80; PULSE 83; RESP 18; TEMP 36.9; O2SAT 98
--- NOTE | 2022-07-09 15:41 | PC.NURSE ---
patient vitally stable. PIV removed. Patient discharge instructions provided to patient and daughter. Verbalized understanding. All concerns addressed. Patient instructed to follow up with PCP and make an appointment for 10 day removal of sutures. Patient discharged to home.
--- NOTE | 2022-07-09 18:14 | PC.NURSE ---
Update-- Received phone call from daughter post discharge stating that her mother seems weaker and wondering if she needs to bring her in. She was advised that this nurse is unable to assess her over the phone, but that if she has concerns, she will need to bring her in to the ED be seen.
== END 2022-07-09 14:55 | disposition home or self-care (01) | DRG 965 ==
LOC: ED 07-08 01:00 → MEDSURG 07-08 01:59
PROVIDERS: Hospitalist; Admitting Provider Family Medicine; Emergency Provider Family Medicine; PCP Family Medicine; Visit Provider Family Medicine
DX: S06.5X1A Traumatic subdural hemorrhage with loss of consciousness of 30 minutes or less, initial encounter (principal); S32.10XA Unspecified fracture of sacrum, initial encounter for closed fracture; S06.0X1A Concussion with loss of consciousness of 30 minutes or less, initial encounter; S01.111A Laceration without foreign body of right eyelid and periocular area, initial encounter; W01.0XXA Fall on same level from slipping, tripping and stumbling without subsequent striking against object, initial encounter; Y92.018 Other place in single-family (private) house as the place of occurrence of the external cause; R82.71 Bacteriuria; M48.55XD Collapsed vertebra, not elsewhere classified, thoracolumbar region, subsequent encounter for fracture with routine healing; R10.32 Left lower quadrant pain; K76.0 Fatty (change of) liver, not elsewhere classified; M48.061 Spinal stenosis, lumbar region without neurogenic claudication; M43.17 Spondylolisthesis, lumbosacral region; E03.9 Hypothyroidism, unspecified; E78.5 Hyperlipidemia, unspecified; Z85.3 Personal history of malignant neoplasm of breast
CPT/HCPCS: 12011; 36415; 70450; 72125; 72131; 73700; 74177; 80048; 80053; 81003; 81015; 83735; 84145; 84443; 84484; 85025; 85027; 85610; 87040; 87086; 87502; 87634; 87635; 93005; 93306; 94761; 97116; 97161; 97165; 97530; 97535; 99284; 99291; G0378; A9270; G0390; J0696; J1953; J7030; J7120; Q9957; Q9967

== ENCOUNTER 2022-12-14 11:30 | Outpatient (RCR) | payer MEDICARE, OTHER, SELFPAY ==
--- NOTE | 2022-08-15 19:05 | OT.OPGNE ---
OT Outpatient General/Neuro Eval OT Outpatient General/Neuro Eval Start: 08/15/22 18:44 Freq: Status: Active Protocol: Document 08/13/22 18:46 SMW (Rec: 08/15/22 19:03 SMW Laptop) E-signed By Malgorzata Molina OT OT Outpatient Evaluation Details Type Type Eval Complexity Low Insurance Information Insurance Information Insurance Information Medicare B Outpatient History/Precautions Medical/Functional History Medical History Reviewed Yes Prior Level of Function/Mobility Patient lives with her daughter and family in the lower level of her home. She reports I in dressing and mobility with a 4WW, although has had several falls recently . Her daughter supervises her showers. She manages her own medications. She utilizes a stair lift to access the main level. Her daughter completes all housekeeping, meals and transportation. Current Condition Date of Onset July 08, 2022 Social History Type of Dwelling Multilevel Home Number of Stairs to Enter (Stairs) 2 Lives With: patient lives in the lower level of her daughter and son in law's home. Employment Status Retired Oriented Patient Orientation Person,Place,Time,Situation Cognitive Assessments Performed Cognitive Assessments Performed [place] Cognitive Assessment (MOCA) Results Assessment Assessment Assessment The patient is a 87 year old female referred to outpatient OT after a fall at home on resulting in a head laceration, loss of consciousness and a subdural hematoma. The patient lives in the lower level of her daughter and son in laws home. There is a stair lift to access main level to lower level. The patient reports I in dressing and ambulating with a 4WW. She admits to several recent falls. She will be seeing PT to address gait and balance. When asked, she reports feeling that her thinking is at baseline, although daughter feels it is a bit slower. The MoCa was administered with the patient achieving a score 25/30. While in the hospital, she scored 24/30. Her score was discussed with the patient and her daughter. No identifiable OT needs at this time. Occupational Therapy Treatment Plan - OP Goals Goals Evaluation only MOCA Treatment Plan Treatment Plan Evaluation,Self-Care/Home Management Certification Certification I Certify That: Therapy Services Provided, Therapy Plan Established, Therapy Plan Reviewed
--- NOTE | 2022-08-19 12:43 | PT.OPEX ---
PT [place] Outpatient Eval PT [facility] Outpatient Eval Start: 08/19/22 07:04 Freq: Status: Active Protocol: Document 08/19/22 07:24 LIZZY (Rec: 08/19/22 07:41 CLCalista [id number]) E-signed By Tigist Maurer PT Physical Therapy Outpatient Evaluation Insurance Information Recert Due Date 11/13/22 Insurance Name Medicare B Medical Diagnosis Gait and Balance Deficit Treating Diagnosis Impaired gait tolerance and balance deficit / recent injurious fall Poor posture Functional Strength deficit Referring MD Dr Oleksandr Cordova Subjective Subjective Briseida reports living in the main level of her daughters home, has a chair lift up to next level. She is IND in ambulation and self cares with use of 4WW. Her daughter assists her with showering, completes all house cleaning, meals and transportation needs . Client had an injurious fall on 07/07/22 (in her living space) resulting in a head laceration, loss of consciousness and a subdural hematoma. Was hospitalized for 2 days, then back to previous living arrangement. CT demo very small brain bleed , second CT showed no change in bleeding. CT last week demo bleeding has stopped and blood has been absorbed. She also cracked her sacrum in the fall. Not displaced though. Her daughter, Mariaelena accompanied her, stated she was dehydrated the day of her fall, had 2 cups of coffee, only about 3 oz of water and not much food. With initiation of PT this date, client reports being back to 70% PLOF. She reports having fallen about 5 X in the past 4 months. Walking tolerance of about 10 reps ( loop in basement she can walk) before the fall she could do this 25 reps. Just standing in one place is very hard due to hip bursitis and chronic LBP. She was not doing any exercises before the fall. Pain Comments 3-6/10 at central [facility] and into Rt hip/bursitis DX Date of Last Physician Visit 07/28/22 Preferred Name Briseida Precautions Treatment Precautions/Contraindications Diverticulitis, Lumbar Spondylolisthesis, Stenosis of the Liver, Arthritis, Depression, Hypertension Weight Bearing Status Full Weight Bearing Therapy Limitations/Systems Review Vision,Hearing Objective Other/Pertinent Objective MoCa (per OT report post incident 07/09/22) 25/30 score Functional Test Performed & Score CALDERON score of 40/56 30 second sit to stand score of 3 reps Assessment Assessment/Impression 87 yo with DX of Gait and Balance deficit, arrived to dept via IND ambulation with use of 4WW. She presents with flattened lumbar lordosis and FF trunk with gait with bodies mass very forward from Zack and walking far behind walker. Flat foot strike and minimal toe push off. She has no real back ext to speak of, but fair SB/ROT and FF per her age. Sit to stand 30 second test with results of 3 repetitions. Pushing hands off her knees for assist. She can walk a few steps without walker, but then furniture surfs vs safely ambulating and standing erect. She is IND in bed mobility, if given enough time to complete. She can perform a bridge in supine. She can only perform 3 SLR, but they are IND. She can perform heel lift in stance X 10 reps. She can stand WBOS unsupported for 1 min, cannot perform with EC - CALDERON score of 40/56. With education on proper heel to toe gait, and erect posture, she was able to safely do so for 150 loop around dept at good/safe pace. She has gross functional strength and lacks endurance. History of falls over the past 4-6 months with recent fall with loss of consciousness, head laceration and subdural hematoma. She will benefit from continued skilled physical therapy to complete progressive gait/ balance training and strengthening. Thank you for this referral. Plan of Care Rehabilitation Potential Good Physical Therapy Goals In 4-6 visits, Briseida will be able to report: 1. Sit to stand with just one arm on chair arm for support 2. Ability to walk indoor loop up to 20 times with proper use of walker and heel to toe gait 3. NBOS stance for at least 20 seconds In 10-12 visits, Briseida will be able to report: 1. IND in proper execution of entire HEP with emphasis on pace, reps and HOLD durations. 2. Stand/walk for at least 20 min to increase ease of self cares, exercise benefits 3. CALDERON score of at least 50/ 56 4. 30 second sit to stand test increased from 3 to at least 8 reps Coordination/Communication With Referral Source,Patient Caregiver Treatment Plan/Direct Interventions Gait Training,Neuromuscular Re -ed,Self-Care/Home Management, Therapeutic Activities, Therapeutic Exercises Frequency/Duration 1X/Wk Patient Will Be Discharged From Therapy Completion of LTG(s),Skills Plateau,Independent w/HEP, Independently Progressing Discharge Plan Comments Gait/balance/coordination and strength progression Evaluation Billing Untimed Code Treatment Minutes 33 Complexity Moderate Certification Information Initial Certification Date 08/19/22 Ending Certification Date 11/13/22 Provider Signature Shows Agreement With POC & Medical Necessity Physician Signature & Date Requested Please Sign/Date Here Physician Comment/Change : Physician NPI Number #
== END 2023-03-31 17:30 | disposition home or self-care (01) ==
PROVIDERS: PCP Family Medicine; Visit Provider Family Medicine
DX: R26.9 Unspecified abnormalities of gait and mobility (principal); Z51.89 Encounter for other specified aftercare
CPT/HCPCS: 97110; 97116; 97140; 97162; 97165

== ENCOUNTER 2023-06-01 14:34 | Outpatient (CLI) | payer MEDICARE, OTHER, SELFPAY | END 2023-06-01 14:35 | disposition home or self-care (01) | PROVIDERS: PCP Family Medicine; Visit Provider Family Medicine | DX: E78.5 Hyperlipidemia, unspecified (principal); E03.9 Hypothyroidism, unspecified | CPT/HCPCS: 80061; 84439; 84443 ==

== ENCOUNTER 2023-08-16 09:13 | Outpatient (CLI) | payer MEDICARE, OTHER, SELFPAY ==
--- NOTE | 2023-08-16 09:45 | MM_ITS ---
Patient: ALMA GARCIA Facility:?[facility] Patient ID:?[id number] Site Patient ID:?[id number]. Site :?[id number] Study:?XRay-Breast Bilateral 3D Diagnostiic mammogram w/cad-08/16/2023 10:14:17 AM Ordering Physician:Sp Final Report: DIGITAL DIAGNOSTIC BILATERAL MAMMOGRAM USING TOMOSYNTHESIS AND COMPUTER-AIDED DETECTION LEFT BREAST ULTRASOUND CLINICAL HISTORY: LEFT breast pain. COMPARISON: 02/22/2022, 07/17/2020. TECHNIQUE: Digital BILATERAL mammogram in four projections. Tomosynthesis and CAD utilized. Real-time ultrasound imaging of LEFT breast with imaging documentation. BREAST COMPOSITION: There are areas of scattered fibroglandular density. FINDINGS: 3D CC/MLO BILATERAL mammogram images submitted. No suspicious masses or architectural distortion. Benign vascular calcifications. No adenopathy. Targeted LEFT breast ultrasound performed in the area of concern at 6 o`clock 4 cm from the nipple. Normal breast tissue is present. No fibrocystic change or mass. IMPRESSION: No suspicious findings. No evidence of malignancy. RECOMMENDATIONS: Annual BILATERAL screening mammography. Results and recommendations discussed with the patient. BI-RADS Category 2: Benign A lay language report of this examination will be provided to the patient. Dictated by Enio Porter MD @ 08/16/2023 12:06:10 PM sobia/Dictated by: Enio Porter MD @ 08/16/2023 12:06:00 PM Signed by:?Enio Porter MD @08/16/2023 12:39:08 PM (Electronic Signature)
--- NOTE | 2023-08-16 10:15 | US_ITS ---
Patient: ALMA GARCIA Facility:?[facility] Patient ID:?[id number] Site Patient ID:?[id number]. Site :?08/16/2023 Study:?US-Breast Left LT BREAST LMT / DR. LAM TO READ-08/16/2023 10:35:44 AM Ordering Physician:?ALAN PEARSON M.D. Final Report: PLEASE SEE DIGITAL DIAGNOSTIC BILATERAL MAMMOGRAM PERFORMED SAME DAY CRL:sobia ramsay/Dictated by: Enio Lam MD @ 08/16/2023 12:06:00 PM Signed by:?Enio Lam MD @08/16/2023 12:39:09 PM (Electronic Signature)
== END 2023-08-16 09:14 | disposition home or self-care (01) ==
LOC: MAMMO 09:15
PROVIDERS: PCP Family Medicine; Visit Provider Family Medicine
DX: N64.4 Mastodynia; Z85.3 Personal history of malignant neoplasm of breast
CPT/HCPCS: 76642; 77066; G0279

== ENCOUNTER 2024-05-14 10:06 | Outpatient (REF) | payer MEDICARE, OTHER, SELFPAY ==
[2024-05-14 11:15] LABS: Basophils Absolute Auto 0.02 K/uL (0.00-0.30); Basophils Percent Auto 0.3 % (0.0-3.0); Eosinophils Percent Auto 1.4 % (0.0-7.0); Hematocrit 44.4 % (33.0-51.0); Hemoglobin* 14.4 gm/dL (12.0-16.0); Immature Granulocytes Abs Auto 0.03 K/uL (0.00-0.30); Immature Granulocytes Pct Auto 0.4 %; Lymphocytes Absolute Auto 1.91 K/uL (0.90-2.90); Lymphocytes Percent Auto 27.1 % (20-44); Mean Corpuscular HGB Conc 32 gm/dL (32-36); Mean Corpuscular Hemoglobin 32 pg (26-34); Mean Corpuscular Volume 98 fL (80-100); Monocytes Percent Auto 10.1 % (0.0-11.0); Neutrophils Absolute Auto 4.28 K/uL (1.7-7.0); Neutrophils Percent Auto 60.7 % (42.0-72.0); Platelet Count* 295 K/uL (140-440); RDW Coefficient of Variation % 16.9 % (11.5-15.5); Red Blood Count 4.52 m/uL (4.00-5.20); White Blood Count* 7.05 K/uL (4.50-11.00)
[2024-05-14 11:19] LABS: Slide Review Reflex No
[2024-05-14 12:01] LABS: Chloride* 99 mmol/L (96-114); Potassium* 4.3 mmol/L (3.6-5.1); Sodium* 137 mmol/L (135-149)
[2024-05-14 12:03] LABS: Cholesterol* 239 mg/dL (90-199)
[2024-05-14 12:04] LABS: Anion Gap 11 mEq/L (7-15); Blood Urea Nitrogen* 19 mg/dL (7-30); Carbon Dioxide* 27 mmol/L (20-32); Creatinine* 0.7 mg/dL (0.5-1.5); Estimated Glomerular Filt Rate 84 ml/min; Glucose* 100 mg/dL (60-115); Triglycerides* 221 mg/dL (40-149)
[2024-05-14 12:05] LABS: Calcium* 9.7 mg/dL (8.4-10.6); HDL Cholesterol* 66 mg/dL (>=50); LDL Cholesterol Calculated 129 mg/dL (<100)
== END 2024-05-14 10:07 | disposition home or self-care (01) ==
LOC: NPINS 10:06
PROVIDERS: PCP Family Medicine; Visit Provider Nurse Practitioner Gerontology
DX: E78.5 Hyperlipidemia, unspecified (principal); E03.9 Hypothyroidism, unspecified; E64.9 Sequelae of unspecified nutritional deficiency
CPT/HCPCS: 80048; 80061; 84443; 85025

== ENCOUNTER 2024-06-19 16:52 | Outpatient (REF) | payer MEDICARE, OTHER, SELFPAY ==
[2024-06-19 18:27] LABS: Basophils Absolute Auto 0.04 K/uL (0.00-0.30); Basophils Percent Auto 0.5 % (0.0-3.0); Eosinophils Absolute Auto 0.01 K/uL (0.00-0.50); Eosinophils Percent Auto 0.1 % (0.0-7.0); Hematocrit 41.7 % (33.0-51.0); Hemoglobin* 13.4 gm/dL (12.0-16.0); Immature Granulocytes Abs Auto 0.02 K/uL (0.00-0.30); Immature Granulocytes Pct Auto 0.2 %; Lymphocytes Percent Auto 15.3 % (20-44); Mean Corpuscular HGB Conc 32 gm/dL (32-36); Mean Corpuscular Hemoglobin 33 pg (26-34); Mean Corpuscular Volume 102 fL (80-100); Monocytes Percent Auto 8.7 % (0.0-11.0); Neutrophils Percent Auto 75.2 % (42.0-72.0); Platelet Count* 318 K/uL (140-440)
[2024-06-19 18:41] LABS: Albumin* 4.3 g/dL (3.3-5.0); Chloride* 95 mmol/L (96-114); Sodium* 134 mmol/L (135-149)
[2024-06-19 18:42] LABS: Potassium* 4.6 mmol/L (3.6-5.1)
[2024-06-19 18:43] LABS: Creatinine* 0.6 mg/dL (0.5-1.5); Estimated Glomerular Filt Rate 87 ml/min
[2024-06-19 18:44] LABS: Alanine Aminotransferase* 12 U/L (4-35); Alkaline Phosphatase* 43 U/L (40-150); Anion Gap 8 mEq/L (7-15); Aspartate Amino Transferase* 25 U/L (12-35); Bilirubin Total* 0.6 mg/dL (0.1-1.5); Blood Urea Nitrogen* 21 mg/dL (7-30); Carbon Dioxide* 31 mmol/L (20-32)
[2024-06-19 18:45] LABS: Calcium* 9.3 mg/dL (8.4-10.6); Glucose* 80 mg/dL (60-115); Phosphorus* 3.5 mg/dL (2.5-4.5)
[2024-06-19 18:47] LABS: C Reactive Protein* 1.9 mg/dL (0.5-1.0)
[2024-06-19 18:49] LABS: Slide Review Reflex No
[2024-06-19 20:07] LABS: Erythrocyte SedimentationRate* 38 mm/hr (2-20)
[2024-06-19 21:51] LABS: PTH Intact* 20.3 pg/mL (14.2-75.2)
[2024-06-23 00:30] LABS: Albumin 3.71 g/dL (3.75-5.01); Alpha 1 Globulin 0.47 g/dL (0.19-0.46); Alpha 2 Globulin 1.11 g/dL (0.48-1.05); Total Protein, Serum 7.1 g/dL (6.3-8.2)
== END 2024-06-19 16:53 | disposition home or self-care (01) ==
LOC: NPINS 16:52
PROVIDERS: PCP Family Medicine; Visit Provider Family Medicine
DX: M81.0 Age-related osteoporosis without current pathological fracture (principal); E03.9 Hypothyroidism, unspecified; E78.5 Hyperlipidemia, unspecified; D64.9 Anemia, unspecified; N28.9 Disorder of kidney and ureter, unspecified; Z87.310 Personal history of (healed) osteoporosis fracture
CPT/HCPCS: 80053; 83735; 83970; 84100; 84165; 85025; 85651; 86140

== ENCOUNTER 2024-08-08 10:15 | Outpatient (REF) | payer MEDICARE, OTHER, SELFPAY ==
[2024-08-08 12:17] LABS: Cholesterol* 246 mg/dL (90-199); Triglycerides* 202 mg/dL (40-149)
[2024-08-08 12:18] LABS: HDL Cholesterol* 54 mg/dL (>=50); LDL Cholesterol Calculated 152 mg/dL (<100)
== END 2024-08-08 10:16 | disposition home or self-care (01) ==
LOC: NPINS 10:15
PROVIDERS: PCP Family Medicine; Visit Provider Nurse Practitioner Gerontology
DX: E03.9 Hypothyroidism, unspecified (principal); E78.5 Hyperlipidemia, unspecified
CPT/HCPCS: 80061; 84443

== ENCOUNTER 2025-02-21 08:26 | Emergency (ER) | payer MEDICARE, OTHER, SELFPAY ==
[2025-02-21] VITALS (21 sets, daily range): BP systolic 102–173; BP diastolic 68–103; PULSE 68–93; RESP 12–24; TEMP 36.5; O2SAT 90–95; BMI 20.3
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
--- NOTE | 2025-02-21 08:51 | CRLHL7_ITS ---
For Patients: As a result of the Century Cures Act, medical imaging exams and procedure reports are released immediately into your electronic medical record. You may view this report before your referring provider. If you have questions, please contact your health care provider. INDICATION: Anterior chest pain. Evaluate for fracture or other bony lesion. COMPARISON: None TECHNIQUE: : CT examination of the chest was performed without contrast.Thin axial sections were obtained from the thoracic inlet through the lung bases. Please note that all CT scans at this facility use dose modulation, iterative reconstruction, and/or weight-based dosing when appropriate to reduce radiation dose to as low as reasonably achievable. FINDINGS: : HEART and MEDIASTINUM: The heart is mildly enlarged. There is no mediastinal or hilar adenopathy or mass. There is no pericardial effusion. Atherosclerotic vascular calcifications are noted. HIATAL HERNIA: Very large hiatal hernia. Essentially, the stomach is intrathoracic. No evidence of volvulus or closed loop obstruction LUNGS and PLEURAL SPACES: Linear and reticular opacities are probably due to a combination of atelectasis, scarring and mild interstitial fibrosis. No focal consolidation, infiltrate or mass. No pleural effusion or pneumothorax. VISUALIZED UPPER ABDOMEN: The limited visualized upper abdominal structures appear normal. OSSEOUS STRUCTURES: There is an angulation deformity of the distal sternum. However, this appears to be chronic and is probably related to a remote injury. No visible acute fracture or destructive process involving the ribs. There are numerous cervical, thoracic and lumbar spine compression deformities. HNP versus indeterminate though none are clearly acute. No visible bone destruction. TUBES and LINES: None. IMPRESSION: 1. Mildly enlarged heart. Atherosclerotic vascular calcifications. 2. Very large hiatal hernia. The stomach is essentially intrathoracic. No evidence of closed loop obstruction or volvulus. 3. Lung findings probably due to combination of atelectasis, minimal scarring and minimal fibrosis. No acute appearing finding. 4. Probable old sternal fracture. Numerous cervical, thoracic and lumbar compression deformities. The age of these are indeterminate though none are clearly acute. No bone destruction. 5. No visible acute fracture involving any of the ribs or specific chest wall abnormality as questioned. Please note that all CT scans at this facility use dose modulation, iterative reconstruction, and/or weight-based dosing when appropriate to reduce radiation dose to as low as reasonably achievable. Dictated by Alexander Shaver MD @ 02/21/2025 10:01:39 AM (Electronically Signed)
[2025-02-21] MEDS: LIDOCAINE 5% PATCH 1 PATCH TRANSDERMA (09:06)
[2025-02-21] MEDS: ACETAMINOPHEN 500 MG TABLET 1000 MG PO (09:06)
[2025-02-21 09:32] LABS: Hematocrit* 41.5 % (33.0-51.0); Hemoglobin* 13.4 gm/dL (12.0-16.0); Immature Granulocytes Abs Auto 0.02 K/uL (0.00-0.30); Immature Granulocytes Pct Auto 0.2 %; Lymphocytes Absolute Auto 1.60 K/uL (0.90-2.90); Mean Corpuscular HGB Conc 32 gm/dL (32-36); Mean Corpuscular Hemoglobin 33 pg (26-34); Mean Corpuscular Volume 102 fL (80-100); RDW Coefficient of Variation % 12.7 % (11.5-15.5); Red Blood Count* 4.08 m/uL (4.00-5.20); White Blood Count* 8.34 K/uL (4.50-11.00)
[2025-02-21 09:33] LABS: Slide Review Reflex No
[2025-02-21 09:41] LABS: Troponin, Point-of-Care* 0.00 ng/ml (0.01-0.04)
[2025-02-21 09:47] LABS: Chloride* 102 mmol/L (96-114); Potassium* 3.8 mmol/L (3.6-5.1); Sodium* 141 mmol/L (135-149)
[2025-02-21 09:50] LABS: Blood Urea Nitrogen* 21 mg/dL (7-30); Creatinine* 0.7 mg/dL (0.5-1.5); Est. Creatinine Clearance* 27.01; Estimated Glomerular Filt Rate 83 ml/min
[2025-02-21 09:51] LABS: Anion Gap 6 mEq/L (7-15); Calcium* 9.7 mg/dL (8.4-10.6); Carbon Dioxide* 33 mmol/L (20-32); Glucose* 108 mg/dL (60-115)
== END 2025-02-21 12:23 | disposition home or self-care (01) ==
PROVIDERS: Emergency Provider Family Medicine
DX: R07.89 Other chest pain (principal); S22.20XA Unspecified fracture of sternum, initial encounter for closed fracture
CPT/HCPCS: 36415; 71250; 80048; 84484; 85025; 86140; 99284; A9270

== ENCOUNTER 2025-03-22 12:29 | Emergency (ER) | payer MEDICARE, OTHER, SELFPAY ==
--- OUTSIDE RECORDS SUMMARY | 2024-10-11 07:45 | XMS_ITS | Continuity of Care Document ---
Author Organization [facility] enter Address [address] [place] [address] [address] Phone Care Team Providers Care Ultrasonographer Name Role Phone [facility] Unavailable Unava ilable Procedures Procedure Date INJ TRIGGER POINT, 05/17 MUSCL NEEDLE LOCALIZATION BY XRAY Advance Directives Directive Yes / No Effective Date File Name No Information Encounters Encounter Description Practice Location Reason(s) For Visit Diagnoses Date Provider Providers Copied on Encounter [facility], [address] [place] [address], [id number], tel:[phone] [facility] No Information [facility]. [address] [place] [address], [id number], . tel:[phone] Referring Provider: Pierce Deleon, [facility] [address], [place], [address] . tel:[phone] Family History Family Member Type Diagnosis Age At Onset No Information Payers Payer name Insurance type Covered democrat ID Authoriza tion(s) Medicare MB [id number] [place] [facility] [id number] Social History Type Description Quantity Date Captured Comments Sex Female Smoking Status No Information Chief Complaint And Reason For Visit No Information Reason For Referral Reason For Referral No Information History Of Present Illness Encounter Date Complaint History Of Prese nt Illness No Information Functional Status Date Functional Assessmen t No Information Instructions Date Instruction Additional Infor mation No Information Assessments Type Assessment Date No Information Patient Care Teams Name Effective Dates (start - stop) Status Members No Information
--- OUTSIDE RECORDS SUMMARY | 2024-10-25 05:20 | XMS_ITS | Continuity of Care Document ---
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 - Active oxycodone 5 mg tablet take 1 tablet by oral every 4-8 hours as needed for pain as needed - Active gabapentin 300 mg capsule take 1 capsule at bedtime - Active levothyroxine 75 mcg capsule take 1 capsule by oral route every day 75 MCG - Active atorvastatin 10 mg tablet take 1 tablet by oral route every day 10 MG - Active Mapap (acetaminophen) 500 mg capsule take 2 capsule by oral route 3 times every day as needed 1000 MG - Active OxyContin 10 mg tablet,crush resistant,extended release take 1 tablet by oral route every 12 hours 10 MG - Active gabapentin 300 mg capsule take 1 capsule by oral route 3 times every day 300 MG - No Longer Active calcitonin (salmon) 200 unit/actuation nasal spray - No Longer Active oxycodone 5 mg tablet take 1 tablet by oral route every 12 hours as needed - No Longer Active Procedures Procedure Date OFFICE/OUTPATIENT VISIT, EST INJ TRIGGER POINT, 1/2 MUSCL NEEDLE LOCALIZATION BY Flouroscopy OFFICE/OUTPATIENT VISIT, [facility] Advance Directives Directive Yes / No Effective Date File Name No Information Encounters Encounter Description Practice Location Reason(s) For Visit Diagnoses Date Provider Providers Copied on Encounter OFFICE/OUTPA TIENT VISIT, [facility], [address] [place], [place], [id number] , [place] tel:[phone] [facility] low back pain (chief complaint) Pain in right hipTrochanteric bursitis, right hipMyalgia, other siteRadiculopath y, lumbar regionWedge compression fx of 1st lumbar vertebra, initial encounter for closed fx 5 Adrienne Pelayo. [address], [place], [id number], [place]. tel:[phone] Referring Provider: [facility] [address] [place], [address]. tel:[phone] [facility], [address] [place] [address], [id number] , [place] tel:[phone] [facility] Myalgia, other site 5 Adrienne Pelayo. [address], [place], [id number], [place]. tel:[phone] Referring Provider: [facility] [address] [place], [address]. tel:[phone] OFFICE/OUTPA TIENT VISIT, [facility], [address] [place], [place], [id number] , [place] tel:[phone] [facility] low back pain (chief complaint) Pain in right hipTrochanteric bursitis, right hipMyalgia, other siteRadiculopath y, lumbar regionWedge compression fx of 1st lumbar vertebra, initial encounter for closed fx 5 Adrienne Pelayo. [address], [address], [place], [id number], [place]. tel:[phone] Referring Provider: [facility] [address] [place], [address]. tel:[phone] Family History Family Member Type Diagnosis Age At Onset No Information Payers Payer name Insurance type Covered constitution party ID Cielo morataya(s) Medicare MB [id number] [facility] An [id number] Social History Type Description Quantity Date Captured Comments Alcohol Use Details Unknown Caffeine Use Details Unknown Tobacco Use Status No Information Smoking Status No Information Sex Female Chief Complaint And Reason For Visit From encounter dated 10/25/2024 11:20'. low back pain (chief complaint). Description: Duration: chronic. Reason For Referral Reason For Referral No Information Plan Of Treatment Date Type Action Status Goal Tobacco Use. Due on due Goal PHQ-9. Due on du e Goal Height. Due on d ue Goal Weight. Due on d ue Goal Medication Reconciliation. D ue on due Goal Tobacco screening. Due on due Goal Unhealthy drug use screening . Due on due Goal Review Allergy List. Due on due Goal Update Social History. Due o n due Goal Tobacco Use. Due on due Goal Medication Reconciliation. D ue on due Goal Unhealthy drug use screening . Due on due Goal Height. Due on d ue Goal Weight. Due on d ue Goal PHQ-9. Due on du e Goal Update Social History. Due o n due Goal Tobacco screening. Due on Ma due Goal Review Allergy List. Due on due History Of Present Illness Encounter Date Complaint History Of Prese nt Illness Comments: Briseida presents for a follow up regarding chronic low back/buttocks pain. Accompanied by her daughter and son today. Pain has been stable since TONY. S/p R piriformis injection on 10/11/24 with myself, and is unsure of relief. Though her daughter feels that her ROM has been much better since that injection and reports that Briseida is not often the best at relaying her pain. Reports that she had a UTI and also suffered a fall on 10/14/24.Today points to her R lateral thigh and buttocks, which is similar to TONY. Has minimal pain on the L side and in the back.Today inquires about a TENS unit. Has not tried lidocaine patches or heat applied to her IT band region.Currently managed on oxycodone and oxycontin w/ benefit, prescribed by her PCP. States she was out of her oxycontin for a couple days. No other concerns today. low back pain Duration: chroni c. low back pain Severity level i s 7. Duration: chronic. It occurs persistently. The patient describes the pain as an ache. Symptoms are aggravated by standing, walking, bending backward and reaching overhead. Symptoms are relieved by exercise, physical therapy, sitting, medications and bending forward. Comments: This i s my first evaluation of the patient, referred by Enio Us DO from [facility]. Previous clinic notes, records, and imaging reviewed. Briseida is an 89 y/o female here for initial consult regarding chronic low back pain. Accompanied by her daughter today, who contributes to the conversation of her care. She has a longstanding hx of multiple falls, compression fractures, and low back pain that began over 20 years ago. She most recently suffered a fall in February 2024, suffered another compression fracture, which substantially worsened her pain. History is somewhat limited, as she has some cognitive difficulties and difficulty describing her pain and historic events. Her daughter contributes on her behalf at times.Pain is most focal in her R buttocks and RLE, pointing to her posterolateral thigh. She has some axial pain in the low back, but the RLE is much more bothersome. Her daughter notes some weakness of the RLE. Typically ambulates in a walker and wheelchair. States that she is sedentary most days, usually bedridden, as she finds it more comfortable. Pain described as achy. Pain is aggravated by ambulation, movement, and standing, though is always present to some extent, even when sitting. Her daughter states that she seems less antalgic in her gait as she continues to ambulate. Pain is relieved by laying down and leaning to her L side when sitting. Denies any shooting pains, numbness, tingling, or weakness.Recently started PT at her assisted living facility. She has tried a BL L2-3 TFESI on 04/10/24, a R L4-5 TFESI on 05/07/24, a R L5-S1 TFESI on 07/19/24, and a R SIJ injection on 08/06/24. These procedures have not provided substantial relief. These procedures were completed at [facility]. Last lumbar MRI completed on 09/07/24 at [facility]. Has not completed a recent R hip XR.She is currently managed on oxycodone ER 10mg BID and oxycodone IR 5mg 0.5/day. Also utilizes lidocaine patches. She notes an allergic reaction to morphine.Briseida is interested in pain management through [facility]. No other concerns today. Functional Status Date Functional Assessmen t No Information Instructions Date Instruction Additional Infor mahi No Information Assessments Type Assessment Date assessment Pain in right hip impression Briseida is an 89 y/o f emale here for initial f/u regarding chronic low back and RLE pain. She has a longstanding hx of multiple falls, compression fractures, and low back pain that began over 20 years ago. History is somewhat limited, as she some cognitive difficulties and difficulty describing her pain and historic events. Her daughter contributes on her behalf at times.Today points to her R lateral thigh, though continues to have some pain in her buttocks. She has some mild axial pain in the low back, but the RLE is much more bothersome. States that she is sedentary most days, usually bedridden, as she finds it more comfortable. Pain described as achy. Pain is aggravated by ambulation, movement, and standing, though is always present to some extent, even when sitting. Prior exam was somewhat limited d/t pt's inability to stand for prolonged periods and accurately describe her pain. Her pain seems less likely to be d/t radicular pain, which seems to have been r/o d/t given lack of response to prior ESIs. Imaging reveals numerous degnerative changes and compression fractures, though she has minimal lumbar tenderness, and her pain seems less concordant with these findings. Exam today seems to localize to the R IT band adn hip girdle musculature. May have some contributory pain of the R GT and hip joint.S/p R piriformis injection on 10/11/24 with myself, and is unsure of relief. Reports that she had a UTI afterwards and also suffered a fall on 10/14/24. However, her daughter states that she had improved ROM of her RLE with home exercises prior to the fall.Actively involved in PT at her assisted living facility. She has tried:- BL L2-3 TFESI on 04/10/24- R L4-5 TFESI on 05/07/24- R L5-S1 TFESI on 07/19/24- R SIJ injection on 08/06/24. The procedure were completed at [facility] and have not provided substantial relief.Last lumbar MRI completed on 09/07/24 at [facility]. Last R hip/pelvic XR completed on 10/10/24 at [facility].She is currently managed on oxycodone ER 10mg BID and oxycodone IR 5mg 0.5/day. I worry about her dose of medications as it seems to be affecting her cognitively and likely is contributing to her frequent falls. Her daughter agrees. Also utilizes lidocaine patches. She notes an allergic reaction to morphine.Pelvic XR from 10/10/24 at [facility]:IMPRESSION:1. 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 Bilateral hip joints are intact without joint space narrowing or significant osseous spurring.3. Deformities of the superior and inferior right pubic rami suggests residua of chronic healed fractures.4. 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 Diffuse bony demineralization assessment Trochanteric bursitis, right hip impression As above assessment Myalgia, other site impression As above assessment Radiculopathy, lumbar region Oct impression As above assessment Wedge compression fx of 1st lumbar vertebra, initial encounter for closed fx impression Multiple compression fx. Do not seem to be causing her too much pain Mental Status Date Cognitive Assessment Orientation - Wilmot ed to time, place, person, situation. Patient Care Teams Name Effective Dates (start - stop) Status Members No Information
--- OUTSIDE RECORDS SUMMARY | 2025-03-22 12:30 | XMS_ITS | Clinical Summary ---
Author Organization [facility] Address [address] [place] [id number] Care Team Providers Care Bandoleer Packer Name Role Phone Oleksandr Cordova MD Primary Care Provider [phone] Allergies Active Allergy Reactions Criticality Noted Date Comments Morphine *Unknown - Follow up needed,Hives High rash Medications * This document contains information received from the source organization and may not represent a complete record from that organization. acetaminophen 500 mg tablet Take 500-1,000 mg by mouth every 6 hours if needed. Active atorvastatin 10 mg tablet TAKE 1 TABLET BY MOUTH ONCE DAILY AT BEDTIME . APPOINTMENT REQUIRED FOR FUTURE REFILLS Active DULoxetine 60 mg Delayed-release capsule 5 Active levothyroxine 75 mcg tablet TAKE 1/2 TAB (37.5MCG) BY MOUTH ONCE DAILY 30-60 MINUTES PRIOR TO OTHER MEDICATIONS AND MEAL Active loperamide 2 mg capsule TAKE 1 CAP BY MOUTH ONCE DAILY NEEDED. DO NOT EXCEED 8 CAPS IN 24 HOURS 5 Active oxyCODONE 5 mg immediate release tablet Take 1 Tablet by mouth 2 times daily if needed for Pain. 5 Active OxyCONTIN 10 mg SUSTAINED release tablet TAKE 1 TABLET BY MOUTH TWICE A DAY FOR PAIN 5 Active sertraline 25 mg tablet Take 1 Tablet by mouth once daily. 5 Active cephalexin 500 mg capsuleIndicati ons:Acute cystitis without hematuria Take 1 Capsule (500 mg) by mouth two times daily. 10 Capsule 5 Active diclofenac topical 1 % gelIndications: Rib contusion, left, initial encounter Apply 2 g topically to affected area(s) four times daily. 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 Gender Identity Not on file Sexual Orientation Not on file Obstetrics History Last Filed Vital Signs Vital Sign Reading Time Taken Comments Blood Pressure 168/100 10/14/2024 6:10 PM CDT Pulse 79 10/14/2024 6:10 PM CDT Temperature 36.8 C (98.3 F) 10/14/2024 6:10 PM CDT Respiratory Rate 12 10/14/2024 6:10 PM CDT Oxygen Saturation 96% 10/14/2024 6:10 PM CDT Inhaled Oxygen Concentration - - Weight 43.1 kg (95 lb) 10/14/2024 4:19 PM CDT Height 147.3 cm (4' 10) 10/14/2024 4:19 PM CDT Body Mass Index 19.86 10/14/2024 4:19 PM CDT Plan of Treatment Health Maintenance Due Date Last Done Comments Tetanus booster 01/04/1946 Depression screening for age 12+ 1949 BMI (ht and wt on same day) for age 18+ 1955 Pneumococcal series for age 50+ (1 of 1 - PCV) 1987 Zoster (shingles) series for age 50+ (1 of 2) 1987 DEXA/DXA scan for age 65+ 2002 Medicare Wellness for age 65+ 2002 RSV vaccine for adults or (1 - 1-dose 75+ series) 01/04/2012 Influenza Vaccine (#1) 2025 Hepatitis B series for 19+ Aged Out N o longer eligible based on patient's age to complete this topic Procedures Procedure Name Priority Date/Time Associated Diagnosis Comments TSH Routine 12/25/2024 10:47 AM CDT Hypothyroidism, unspecified from Last 3 Months Results * TSH (12/25/2024 10:47 AM CDT) TSH 2.73 0.27 - 4.20 uIU/mL 12/25/2024 12:12 PM CDT [facility] Blood BLOOD SPECIMEN / Unknown Butterfly / Unknown 12/25/2024 10:47 AM CDT 12/25/2024 11:29 AM CDT Narrative [facility] - 12/25/2024 12:12 PM CDT In Adults, TSH values between 5.00 and 10.00 uIU/ml do not necessarily indicate the presence of Hypothyroidism. Correlation with clinical findings such as presence of goiter and/or Thyroperoxidase (TPO) Antibody may be helpful. For more information please refer to OLMAN 2004; 291: 228-238. us Kitty Salmeron NP CHEMISTRY Final Resul t [address] [address] from Last 3 Months Insurance MEDICARE [place] ONLY MEDICARE PART B HB ONLY MEDICARE PART A HB ONLY [facility] ONLY Care Teams Bandoleer Packer Relationship Specialty Start Date End Date Oleksandr Cordova MD PCP - General Family Practice 06/30/16
--- OUTSIDE RECORDS SUMMARY | 2025-03-22 12:30 | XMS_ITS | Clinical Summary ---
Author Organization [facility] Address [address] [place] [id number] Care Team Providers Care Tinsel Machine Operator Name Role Phone Obinna Cordova MD Primary Care Provider [phone] Allergies Active Allergy Reactions Criticality Noted Date Comments Morphine Hives High 01/30/2021 rash Medications levothyroxine (SYNTHROID/LEVO THROID) 75 MCG tablet Take 75 mcg by mouth daily Active atorvastatin (LIPITOR) 10 MG tablet Take 10 mg by mouth daily Active alendronate (FOSAMAX) 70 MG tablet Take 70 mg by mouth every 7 days Active aspirin 81 MG EC tablet Take 81 mg by mouth daily Active calcium carbonate 600 mg-vitamin D 400 units (CALTRATE) 600-400 MG-UNIT per tablet Take 1 tablet by mouth 2 times daily Active glucosamine-cho ndroitin 500-400 MG CAPS per capsule Take 1 capsule by mouth daily Active Vitamin D3 (CHOLECALCIFERO L) 125 MCG (5000 UT) tablet Take by mouth daily Active vitamin C (ASCORBIC ACID) 250 MG tablet Take 250 mg by mouth daily Active traMADol (ULTRAM) 50 MG tablet Take 50 mg by mouth every 6 hours as needed for severe pain Active acetaminophen (TYLENOL) 500 MG tablet Take 500-1,000 mg by mouth every 6 hours as needed for mild pain Active Active Problems No known active problems Family History Medical History Relation Comments Prostate Cancer Father Relation Status Comments Father Social History Tobacco Use Types Packs/Day Years Used Date Smoking Tobacco: Never Smokeless Tobacco: Never Alcohol Use Standard Drinks/Week Comments Not Currently 0 (1 standard drink = 0.6 oz pur e alcohol) Adolescent Education Answer Date Record ed Getting School Help Needed Not on file 02/20 Comments No Sex and Gender Information Value Date Recorded Sex Assigned at Not on file 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 Gender Identity Not on file Sexual Orientation Not on file Last Filed Vital Signs Vital Sign Reading Time Taken Comments Blood Pressure 127/75 02/23/2021 10:20 AM CDT Pulse 66 02/23/2021 10:20 AM CDT Temperature - - Respiratory Rate 12 02/23/2021 10:20 AM CDT Oxygen Saturation 94% 02/23/2021 10:20 AM CDT Inhaled Oxygen Concentration - - Weight 53.5 kg (118 lb) 02/23/2021 7:36 AM CDT Height 152.4 cm (5') 02/23/2021 7:36 AM CDT Body Mass Index 23.05 02/23/2021 7:36 AM CDT Plan of Treatment Not on file Insurance MEDICARE [facility] Care Teams Tinsel Machine Operator Relationship Specialty Start Date End Date Obinna Cordova MD PCP - General Family Medicine 02/16/21
--- OUTSIDE RECORDS SUMMARY | 2025-03-22 12:30 | XMS_ITS | Clinical Summary ---
Author Organization [facility] Address [address], [place] [address] Care Team Providers Care Pickling Machine Operator Name Role Phone Obinna Cordova MD Primary Care Provider [phone] Source Comments You are receiving this document as you are listed as the primary care provider,follow-up provider, or the patient has been referred to you for consultation.This is in compliance with the Medicare and[facility] Incentive Program,which states Providers who transition their patient to another setting of careor provider of care or refers their patient to another provider of care shouldprovide summary care record for each transition of care or referral. [facility] Allergies Active Allergy Reactions Criticality Noted Date Comments Morphine Unknown 08/17/2016 Medications levothyroxine (SYNTHROID) 75 MCG tablet Take 75 mcg by mouth daily. Active atorvastatin (LIPITOR) 10 MG tablet Take 10 mg by mouth daily. Active aspirin 81 MG chewable tablet Take 81 mg by mouth daily. Reported on 09/15/2016 Active Ca Cit Malate-Choleca lciferol (CALCIUM CITRATE MALATE-VIT D OR) 630 mg. Active Ascorbic Acid (VITAMIN C) 250 MG tablet Take 250 mg by mouth daily. Active cholecalcifero l (VITAMIN D3) 1000 UNITS tablet Take 1,000 Units by mouth daily. Active acetaminophen (TYLENOL) 500 MG tablet Take 500-1,000 mg by mouth every 4 hours as needed for Pain. Maximum acetaminophen dose is 4000 mg in 24 hours Active MELOXICAM OR Active alendronate (FOSAMAX) 35 MG tablet Take 35 mg by mouth once every week. Active traMADol (ULTRAM) 50 MG tablet Take 1-2 Tabs by mouth every 6 hours as needed. 240 Tab 8 Active HYDROcodone-ac etaminophen (NORCO) 5-325 MG tablet Take 0.5-1 Tablets by mouth at bedtime as needed for Pain. 7 Tablet Active Active Problems Problem Noted Date Diagnosed Date Right lumbosacral radiculopathy 09/09/2016 Lumbar compression fracture 09/09/2016 History of breast cancer 09/09/2016 H/O: hysterectomy 09/09/2016 Hypothyroid 09/09/2016 Hypercholesteremia 09/09/2016 S/P cholecystectomy 09/09/2016 Age related osteoporosis 09/09/2016 Family History Medical History Relation Name Comments prostate cancer Father Heart Attack Mother Hyperlipidemia Brother breast cancer Cousin breast cancer Sister 1 Cancer, Breast Sister 2 Lupus Sister 2 Relation Name Status Comments Father Mother Brother Alive Cousin Sister 1 Sister 2 Alive Social History Tobacco Use Types Packs/Day Years Used Date Smoking Tobacco: Never Smokeless Tobacco: Never Alcohol Use Standard Drinks/Week Comments No 0 (1 standard drink = 0.6 oz pur e alcohol) Comments Unknown Sex and Gender Information Value Date Recorded Sex Assigned at Not on file Legal Sex Female 3:10 PM CDT Gender Identity Not on file Sexual Orientation Not on file Occupation Industry Job Start Date Job End Date retired Not on file Not on file Not on file Last Filed Vital Signs Vital Sign Reading Time Taken Comments Blood Pressure 154/79 04/12/2017 11:52 AM COLLECTION CLERK Pulse 80 04/12/2017 11:52 AM COLLECTION CLERK Temperature 36.3 C (97.3 F) 05/01/2021 4:21 PM COLLECTION CLERK Respiratory Rate 16 04/12/2017 10:29 AM COLLECTION CLERK Oxygen Saturation - - Inhaled Oxygen Concentration - - Weight 52.2 kg (115 lb) 05/01/2021 4:21 PM COLLECTION CLERK Height 152.4 cm (5') 05/01/2021 4:21 PM COLLECTION CLERK Body Mass Index 22.46 05/01/2021 4:21 PM COLLECTION CLERK Plan of Treatment Health Maintenance Due Date Last Done Comments Medicare Annual Wellness Visit 1935 Zoster/Shingles Vaccine (1 of 2) 1987 Dexa 2002 RSV Vaccine (1 - 1-dose 75+ series) 01/04/2012 COVID-19 Vaccine (3 - season) 2025 07/19/2020, 06/21/2020 Influenza Vaccine (#1) 2025 , 02/11/2020, 03/20/2019, Additional history exists DTaP/Tdap/Td Vaccine (2 - Tdap) 04/06/2029 04/06/2019 Pneumococcal Vaccine 50+ Yrs Completed 01/07/2016, 02/20/2007 HepA Vaccine Aged Out No longer eligi ble based on patient's age to complete this topic HepB Vaccine Aged Out No longer eligi ble based on patient's age to complete this topic Hib Vaccine Aged Out No longer eligi ble based on patient's age to complete this topic IPV (Polio) Vaccine Aged Out No longe r eligible based on patient's age to complete this topic MCV4 Vaccine Aged Out No longer eligi ble based on patient's age to complete this topic Meningococcal B Vaccine Aged Out No l onger eligible based on patient's age to complete this topic Insurance MEDICARE [facility] [facility] MEDICARE MEDICARE Care Teams Pickling Machine Operator Relationship Specialty Start Date End Date Obinna Cordova MD [facility] [address] [place] [address] PCP - General Family Practice 08/17/16
[2025-03-22 12:43] VITALS: BP 136/80; PULSE 81; RESP 14; TEMP 36.7; O2SAT 90
--- NOTE | 2025-03-22 13:08 | CRLHL7_ITS ---
For Patients: As a result of the Century Cures Act, medical imaging exams and procedure reports are released immediately into your electronic medical record. You may view this report before your referring provider. If you have questions, please contact your health care provider. INDICATION: Fall with head trauma TECHNIQUE: CT head without contrast. COMPARISON: July 08, 2022 FINDINGS: CSF spaces: [id number] diffuse cerebral volume loss. No extra-axial fluid collections. Ventricles: Commensurate with sulci. No Hydrocephalus. Brain parenchyma: No mass lesion, hemorrhage, or acute infarction. The wills-white differentiation is normal. Progression of multifocal to confluent areas of decreased attenuation in the white matter are non-specific but consistent with small vessel/ischemic changes. Midline Structures: Normal. No shift. Orbits: Bilateral pseudophakia Vessels: Moderate atherosclerotic calcifications. Paranasal sinuses: Normal. Mastoid sinuses: Normal. Skull base and calvarium: No fractures or significant abnormalities. IMPRESSION: 1. No acute intracranial hemorrhage. 2. Progression of moderately advanced multifocal to confluent white matter changes which are nonspecific but consistent with small-vessel ischemic/degenerative changes. Please note that all CT scans at this facility use dose modulation, iterative reconstruction, and/or weight-based dosing when appropriate to reduce radiation dose to as low as reasonably achievable. Dictated by Dudley Alfonso MD @ 03/22/2025 1:47:17 PM (Electronically Signed)
--- NOTE | 2025-03-22 13:08 | CRLHL7_ITS ---
For Patients: As a result of the Century Cures Act, medical imaging exams and procedure reports are released immediately into your electronic medical record. You may view this report before your referring provider. If you have questions, please contact your health care provider. INDICATION: Weakness with fall. TECHNIQUE: Chest 2 views. COMPARISON: May 11, 2021 FINDINGS: Tubes and devices: None. Lungs: Lungs are clear. No sign of infiltrate or mass. Pleura: No pleural effusion. No pneumothorax. Heart: Heart size and vasculature are normal in caliber and appearance. Stella and Mediastinum: No enlargement. Bones and soft tissues: Marked kyphosis. Marked diffuse bone demineralization. Multiple mid and lower thoracic compression fractures have progressed since the previous study. Large retrocardiac hiatus hernia. IMPRESSION: 1. Marked progressive kyphosis with progression of multiple mid and lower thoracic compression fractures of indeterminate age. These are poorly visualized due to demineralization and technique. Fracture age and characteristic could further be characterized with a thoracic MRI or CT, as clinically indicated. 2. No acute intrathoracic abnormalities. Dictated by Dudley Alfonso MD @ 03/22/2025 2:02:53 PM (Electronically Signed)
--- NOTE | 2025-03-22 13:11 | ED.GENADULT ---
HPI - General Adult General Chief complaint: Fall/Minor Trauma Stated complaint: fall yesterday/poss UTI Time Seen by Provider: 03/22/25 12:53 Source: patient and family Mode of arrival: ambulatory Limitations: no limitations History of Present Illness HPI narrative: 89-year-old female presenting today after a fall. Patient lives in assisted living and was with an aide earlier today when she states that essentially her knees gave out and she fell down to the ground and then backwards, hitting her head on the ground. She denies headache or neck pain. No back pain. She states that for the last 2 weeks she has been weaker than usual. She also fell yesterday when she was trying to get into her bed. Her daughter has noticed that she seems more unsteady on her feet for the last 2 days. This has occurred in the past when she has had a UTI. She has not been coughing, no fevers, no vomiting or nausea. Normal appetite. No diarrhea. She complains of increased urinary frequency, no dysuria. Related Data Home Medications ?Medication ?Instructions ?Recorded ?Confirmed acetaminophen 500 mg tablet 1,000 mg PO TID 02/03/22 03/22/25 (Tylenol Extra Strength) cholecalciferol (vitamin D3) 125 125 mcg PO DAILY 02/03/22 03/22/25 mcg (5,000 unit) capsule calcium 600 mg (as 1 tab PO DAILY 07/08/22 03/22/25 carbonate)-vitamin D3 5 mcg (200 unit) tablet oxycodone 10 mg tablet,crush 10 mg PO BID pain 02/21/25 03/22/25 resistant,extended release 12 hr (OxyContin) oxycodone 5 mg tablet 5 mg PO BID PRN pain 02/21/25 03/22/25 sertraline 25 mg tablet 25 mg PO DAILY 02/21/25 03/22/25 ascorbic acid (vitamin C) 250 mg DAILY 03/22/25 tablet calcium carb-vit D3-ipriflavon 1 tab PO DAILY 03/22/25 03/22/25 tablet calcium carbonate (Antacid 200 mg PO DAILY PRN 03/22/25 03/22/25 (calcium carbonate)) cholecalciferol (vitamin D3) 25 25 mcg PO DAILY 03/22/25 03/22/25 mcg (1,000 unit) capsule (Vitamin D3) glucos sul [id number]-Mn PO DAILY 03/22/25 lidocaine 5 % topical patch 1 patch topical DAILY 03/22/25 03/22/25 (Lidoderm) loperamide 2 mg capsule (Imodium 2 mg PO Q4H PRN 03/22/25 03/22/25 A-D) magnesium glycinate 120 mg (as 240 mg PO DAILY 03/22/25 03/22/25 glycinate) capsule mecobalamin (vitamin B12) 2,500 2,500 mcg PO DAILY 03/22/25 03/22/25 mcg chewable tablet melatonin 5 mg capsule 5 mg PO HS PRN 03/22/25 03/22/25 naloxone 4 mg/actuation nasal 4 mg intranasal Q2-3M PRN 03/22/25 03/22/25 spray (Narcan) Previous Rx's ?Medication ?Instructions ?Recorded levothyroxine 75 mcg tablet 75 mcg PO DAILY #90 tabs 06/01/23 Allergies Allergy/AdvReac Type Severity Reaction Status Date / Time morphine Allergy Intermediate hives Verified 03/22/25 12:50 Review of Systems Status of ROS: Reports: 10 or more systems reviewed and unremarkable except as noted in History and below [facility] Medical History Sacral fracture ?S32.10XA - Unspecified fracture of sacrum, initial encounter for closed fracture (ICD-10) Acute subdural hematoma ?S06.5XAA - Traumatic subdural hemorrhage with loss of consciousness status unknown, initial encounter (ICD-10) Laceration of forehead ?S01.81XA - Laceration without foreign body of other part of head, initial encounter (ICD-10) Steatosis of liver ?K76.0 - Fatty (change of) liver, not elsewhere classified (ICD-10) Polyp of colon ?K63.5 - Polyp of colon (ICD-10) Surgical History Status post left breast lumpectomy ?Z98.890 - Other specified postprocedural states (ICD-10) Status post laparoscopic cholecystectomy ?Z90.49 - Acquired absence of other specified parts of digestive tract (ICD-10) Status post hysterectomy ?Z90.710 - Acquired absence of both cervix and uterus (ICD-10) Social History Narrative: She lives with her daughter, Mariaelena, and her daughter's family. She reports this has been going well for her and she is quite grateful for this arrangement. She indicates her daughter and her son, James, would be healthcare power of front desk host. Her code status is DNR. She does not smoke. She does not drink alcohol. Highest level of school completed/degree received: Associate degree: occupational, technical, vocational program Smoking Status: Never smoker Do you use any of these nicotine containing products: None Second hand tobacco smoke exposure: No How often do you have a drink containing alcohol: never How many standard drinks containing alcohol do you have on a typical day: 1 or 2 How often do you have six or more drinks on one occasion: Never AUDIT-C Alcohol total score: 0 Non-prescribed substance use: denies use Caffeine: Yes service: No Exam Narrative: Exam Narrative: Elderly, frail patient in no acute distress. Alert and oriented x3. Answers questions appropriately. But does repeat her questions sometimes. Patient speaks in full sentences without needing to catch her breath. HEENT: Normocephalic atraumatic. Pupils are equally round reactive to light. Extraocular muscles are intact. Conjunctivae are moist without any icterus noted. Moist mucous membranes. Cardiovascular: Heart is regular rate and rhythm S1 and S2 are present without any murmurs. Lungs: Clear to auscultation bilaterally no wheezes rhonchi or rales are appreciated. Patient takes deep breaths without any discomfort. Abdomen: Soft and nontender nondistended with normal bowel sounds. No guarding or rebound. Extremities: Bilateral lower extremities are without edema. Skin: Well perfused. Const: Vital Signs, click to edit/add: Vital Signs - 24 hr 03/22/25 12:43 03/22/25 13:42 03/22/25 15:00 Temperature 98.0 F Pulse Rate [Pulse Oximeter] 81 78 Respiratory Rate 14 16 Blood Pressure [Ri ght Upper Arm] 136/80 131/78 Pulse Oximetry 90 90 92 Oxygen Delivery Me thod Room Air Room Air Course Course ED Course: 89-year-old female with weakness and repeated falls. Did proceed with a head CT given her recent falls and started workup for weakness. EKG, read by me, shows normal sinus rhythm with a pulse of 75. Head CT was unremarkable for any acute pathology. Chest x-ray does not show any lung pathology, she does have multiple probably chronic thoracic compression fractures given that she is not having new acute pain. Patient's daughter was concerned about the possibility of low back fractures as well and requested a lumbar x-ray. This was done showing multiple progressing compression fractures as well as stable ones. Patient states that she is aware that she has multiple compression fractures. And again denies any new acute pain. Lab work unremarkable. UA without significant evidence of infection. Urine culture pending. Discussed results with patient and her daughter. At this time recommend extra care over the weekend an extra caution getting around. Discussed follow-up with primary care. Vital Signs Vital signs: Initial Vital Signs Temperature 98.0 F 03/22/25 12:43 Temperature Source Temporal Artery Scan 03/22/25 12:43 Pulse Rate 81 03/22/25 12:43 Respiratory Rate 14 03/22/25 12:43 Blood Pressure 136/80 03/22/25 12:43 Blood Pressure Mean 98 03/22/25 12:43 Blood Pressure Position Sitting 03/22/25 12:43 Pulse Oximetry 90 03/22/25 12:43 Oxygen Delivery Method Room Air 03/22/25 12:43 Vital Signs Temperature 98.0 F 03/22/25 12:43 Pulse Rate 81 03/22/25 12:43 Respiratory Rate 14 03/22/25 12:43 Blood Pressure 136/80 03/22/25 12:43 Pulse Oximetry 90 03/22/25 12:43 Oxygen Delivery Method Room Air 03/22/25 12:43 Temperature 98.0 F 03/22/25 12:43 Pulse Rate 78 03/22/25 15:00 Respiratory Rate 16 03/22/25 15:00 Blood Pressure 131/78 03/22/25 15:00 Pulse Oximetry 92 03/22/25 15:00 Oxygen Delivery Method Room Air 03/22/25 15:00 Medical Decision Making [facility] Narrative Medical decision making narrative: 89-year-old female with weakness, falls x2 over the last 2 days. Plan per above. Lab Data Lab results reviewed: Yes I reviewed the patient's lab results Labs: Lab Results 03/22/25 03/22/25 Range/Units 13:55 14:45 WBC 9.97 (4.50-11.00) K/uL RBC 4.19 (4.00-5.20) m/uL Hgb 13.6 (12.0-16.0) gm/dL Hct 42.5 (33.0-51.0) % MCV 101 H (80-100) fL MCH 33 (26-34) pg MCHC 32 (32-36) gm/dL RDW Coeff of Marlen 12.9 (11.5-15.5) % Plt Count 272 (140-440) K/uL Neut % (Auto) 67.7 (42.0-72.0) % Lymph % (Auto) 21.5 (20-44) % [place] % (Auto) 8.0 (0.0-11.0) % Eos % (Auto) 2.0 (0.0-7.0) % Baso % (Auto) 0.3 (0.0-3.0) % Neut # (Auto) 6.75 (1.7-7.0) K/uL Lymph # (Auto) 2.14 (0.90-2.90) K/uL [place] # (Auto) 0.80 (0.00-0.90) K/UL Eos # (Auto) 0.20 (0.00-0.50) K/uL Baso # (Auto) 0.03 (0.00-0.30) K/uL Abs Immat Gran (auto) 0.05 (0.00-0.30) K/uL Imm/Tot Granulo (auto) 0.5 % Sodium 138 (135-149) mmol/L Potassium 4.0 (3.6-5.1) mmol/L Chloride 99 (96-114) mmol/L Carbon Dioxide 29 (20-32) mmol/L Anion Gap 10 (7-15) mEq/L BUN 24 (7-30) mg/dL Creatinine 0.6 (0.5-1.5) mg/dL Estimated GFR 86 ml/min Glucose 104 (60-115) mg/dL Lactate 1.3 (0.5-1.9) mmol/L Calcium 9.8 (8.4-10.6) mg/dL Magnesium 1.9 (1.5-2.6) mg/dL Total Bilirubin 0.7 (0.1-1.5) mg/dL Direct Bilirubin 0.1 (0.0-0.5) mg/dL AST 27 (12-35) U/L ALT 20 (4-35) U/L Alkaline Phosphatase 70 (40-150) U/L Troponin I < 0.01 (0.01-0.04) ng/mL C-Reactive Protein < 0.5 L (0.5-1.0) mg/dL Total Protein 8.4 H (6.0-8.3) g/dL Albumin 4.5 (3.3-5.0) g/dL Urine Color Yellow (Yellow) Urine Appearance Clear (Clear) Urine pH 5.5 (5.0-8.5) Ur Specific [place] >= 1.030 (1.000-1.030) Urine Protein 1+ A (Negative) Urine Glucose (UA) Negative (Negative) Urine Ketones Negative (Negative) Urine Blood Negative (Negative) Urine Nitrite Negative (Negative) Urine Bilirubin Negative (Negative) Urine Urobilinogen 0.2 (0.2-1.0) Ur Leukocyte Esterase 1+ A (Negative) Urine RBC 0-2 (0-2) Urine WBC 5-10 A (0-5) Ur Squamous Epith Cells Few (None-Few) Urine Bacteria Few A (None) SARS-CoV-2 (PCR) Negative SARS-CoV-2 (Negative) Influenza Type A (PCR) Negative PCR FLU A (Negative) Influenza Type B (PCR) Negative PCR FLU B (Negative) Imaging Data CT scan - head: Attestation: I have reviewed the pertinent imaging results. Radiologist's impression: TECHNIQUE: CT head without contrast. COMPARISON: July 08, 2022 FINDINGS: CSF spaces: [id number] diffuse cerebral volume loss. No extra-axial fluid collections. Ventricles: Commensurate with sulci. No Hydrocephalus. Brain parenchyma: No mass lesion, hemorrhage, or acute infarction. The wills-white differentiation is normal. Progression of multifocal to confluent areas of decreased attenuation in the white matter are non-specific but consistent with small vessel/ischemic changes. Midline Structures: Normal. No shift. Orbits: Bilateral pseudophakia Vessels: Moderate atherosclerotic calcifications. Paranasal sinuses: Normal. Mastoid sinuses: Normal. Skull base and calvarium: No fractures or significant abnormalities. IMPRESSION: 1. No acute intracranial hemorrhage. 2. Progression of moderately advanced multifocal to confluent white matter changes which are nonspecific but consistent with small-vessel ischemic/degenerative changes. Chest x-ray: Attestation: I have reviewed the pertinent imaging results. Radiologist's impression: TECHNIQUE: Chest 2 views. COMPARISON: May 11, 2021 FINDINGS: Tubes and devices: None. Lungs: Lungs are clear. No sign of infiltrate or mass. Pleura: No pleural effusion. No pneumothorax. Heart: Heart size and vasculature are normal in caliber and appearance. Stella and Mediastinum: No enlargement. Bones and soft tissues: Marked kyphosis. Marked diffuse bone demineralization. Multiple mid and lower thoracic compression fractures have progressed since the previous study. Large retrocardiac hiatus hernia. IMPRESSION: 1. Marked progressive kyphosis with progression of multiple mid and lower thoracic compression fractures of indeterminate age. These are poorly visualized due to demineralization and technique. Fracture age and characteristic could further be characterized with a thoracic MRI or CT, as clinically indicated. 2. No acute intrathoracic abnormalities. X-ray lumbar spine: Attestation: I have reviewed the pertinent imaging results. Radiologist's impression: Technique: Lumbar spine two views Comparison: None. Findings: Limitations: Marked kyphosis, bone demineralization, and off centered imaging severely limit diagnostic imaging. Progression of compression endplate fractures at L2, L3 and L4 with stable T11 and L1 compression fractures. These are poorly characterized. Marked demineralization. Progression of spondylosis and facet degenerative changes. Impression: Suboptimal study with progression of compression fractures at L2, L3 and L4 with stable T. 11 and L1 compression fractures these could further be characterized with MRI or CT, as clinically indicated. ECG Data Attestation: I personally reviewed and interpreted this ECG as follows: Discharge Plan Discharge Clinical Impression: Weakness, Fall Patient Disposition: Home w/ Parent or Adult Condition: Stable Additional Instructions: The workup today which included imaging as well as blood work did not find any abnormalities that would account for the patient's symptoms. Recommend being careful over the weekend and getting around with assistance. Recommend following up with primary care provider to discuss physical therapy, strengthening exercises. Urine culture pending-will known about 48 hours if there is an organism in the urine that requires antibiotic treatment. Prescriptions: No Action levothyroxine 75 mcg tablet 75 mcg PO DAILY Qty: 90 3RF calcium carbonate-vitamin D3 600 mg-5 mcg (200 unit) tablet 1 tab PO DAILY sertraline 25 mg tablet 25 mg PO DAILY oxycodone 5 mg tablet 5 mg PO BID PRN (Reason: pain) oxycodone [OxyContin] 10 mg tablet,oral only,ext.rel.12 hr 10 mg PO BID cholecalciferol (vitamin D3) [Vitamin D3] 25 mcg (1,000 unit) capsule 25 mcg PO DAILY ascorbic acid (vitamin C) 250 mg tablet DAILY magnesium glycinate 120 mg capsule 240 mg PO DAILY melatonin 5 mg capsule 5 mg PO HS PRN naloxone [Narcan] 4 mg/actuation spray,non-aerosol 4 mg intranasal Q2-3M PRN Rx Instructions: spray 1 dose into ONE nostril; alternate nostrils w each dose until help arrives calcium carb-vit D3-ipriflavon Tablet 1 tab PO DAILY loperamide [Imodium A-D] 2 mg capsule 2 mg PO Q4H PRN Rx Instructions: administer after each loose stool until symptoms controlled; do not exceed 8 mg per 24 hrs calcium carbonate [Antacid (calcium carbonate)] 200 mg calcium (500 mg) tablet,chewable 200 mg PO DAILY PRN glucos sul [id number] [Glucosamine Chondroitin] PO DAILY mecobalamin (vitamin B12) 2,500 mcg tablet,chewable 2,500 mcg PO DAILY lidocaine [Lidoderm] 5 % adhesive patch,medicated 1 patch topical DAILY Rx Instructions: leave on most painful area for up to 12 hrs acetaminophen [Tylenol Extra Strength] 500 mg tablet 1,000 mg PO TID cholecalciferol (vitamin D3) 125 mcg (5,000 unit) capsule 125 mcg PO DAILY Follow Up/Referrals: Provider,Not a Local [Primary Care Provider, Family Practice] Stand Alone Forms: [facility] Info Instructions
--- NOTE | 2025-03-22 13:27 | CRLHL7_ITS ---
For Patients: As a result of the Century Cures Act, medical imaging exams and procedure reports are released immediately into your electronic medical record. You may view this report before your referring provider. If you have questions, please contact your health care provider. Indication: Fall with weakness. Kyphosis Technique: Lumbar spine two views Comparison: None. Findings: Limitations: Marked kyphosis, bone demineralization, and off centered imaging severely limit diagnostic imaging. Progression of compression endplate fractures at L2, L3 and L4 with stable T11 and L1 compression fractures. These are poorly characterized. Marked demineralization. Progression of spondylosis and facet degenerative changes. Impression: Suboptimal study with progression of compression fractures at L2, L3 and L4 with stable T. 11 and L1 compression fractures these could further be characterized with MRI or CT, as clinically indicated. Dictated by Dudley Alfonso MD @ 03/22/2025 2:11:40 PM (Electronically Signed)
[2025-03-22 13:42] VITALS: O2SAT 90
[2025-03-22 14:06] LABS: Lactate* 1.3 mmol/L (0.5-1.9)
[2025-03-22 14:12] LABS: Hematocrit* 42.5 % (33.0-51.0); Hemoglobin* 13.6 gm/dL (12.0-16.0); Immature Granulocytes Abs Auto 0.05 K/uL (0.00-0.30); Immature Granulocytes Pct Auto 0.5 %; Lymphocytes Absolute Auto 2.14 K/uL (0.90-2.90); Mean Corpuscular HGB Conc 32 gm/dL (32-36); Mean Corpuscular Hemoglobin 33 pg (26-34); Mean Corpuscular Volume 101 fL (80-100); RDW Coefficient of Variation % 12.9 % (11.5-15.5); Red Blood Count* 4.19 m/uL (4.00-5.20); White Blood Count* 9.97 K/uL (4.50-11.00)
[2025-03-22 14:17] LABS: Slide Review Reflex No
[2025-03-22 14:27] LABS: Albumin* 4.5 g/dL (3.3-5.0); Chloride* 99 mmol/L (96-114); Potassium* 4.0 mmol/L (3.6-5.1); Sodium* 138 mmol/L (135-149)
[2025-03-22 14:30] LABS: Alanine Aminotransferase* 20 U/L (4-35); Alkaline Phosphatase* 70 U/L (40-150); Anion Gap 10 mEq/L (7-15); Aspartate Amino Transferase* 27 U/L (12-35); Bilirubin Direct* 0.1 mg/dL (0.0-0.5); Bilirubin Total* 0.7 mg/dL (0.1-1.5); Blood Urea Nitrogen* 24 mg/dL (7-30); Carbon Dioxide* 29 mmol/L (20-32); Creatinine* 0.6 mg/dL (0.5-1.5); Estimated Glomerular Filt Rate 86 ml/min; Total Protein* 8.4 g/dL (6.0-8.3)
[2025-03-22 14:31] LABS: Calcium* 9.8 mg/dL (8.4-10.6); Glucose* 104 mg/dL (60-115)
[2025-03-22 14:58] LABS: PCR FLU A Negative PCR FLU A (Negative); PCR FLU B Negative PCR FLU B (Negative); SARS PCR* Negative SARS-CoV-2 (Negative)
[2025-03-22 15:00] VITALS: BP 131/78; PULSE 78; RESP 16; O2SAT 92
[2025-03-22 15:02] LABS: Appearance Urine Clear (Clear)
== END 2025-03-22 16:21 | disposition home or self-care (01) ==
PROVIDERS: Emergency Provider Family Medicine
DX: M54.9 Dorsalgia, unspecified (principal); R29.6 Repeated falls; R53.1 Weakness
CPT/HCPCS: 36415; 70450; 71046; 72100; 80048; 80076; 81001; 83605; 83735; 84484; 85025; 86140; 87086; 87636; 93005; 94761; 99284; 99285